=== PATIENT | male | born 1945 | race Caucasian/White ===

== ENCOUNTER 2019-09-05 15:38 | Outpatient (CLI) | payer MEDICARE, SELFPAY ==
--- NOTE | ~2019-09-05 | XR_ITS ---
XR chest 2V 09/05/2019 15:57 Indication: Dyspnea and cough Procedure: 2 view chest Comparison: Comparison to multiple prior studies sequentially, with oldest reviewed study dated 10/2013. Findings: Status post median sternotomy for CABG. Heart size normal. No focal air space disease, pulm onary edema, pleural effusion or suspected pneumothorax. Calcified granuloma right mid thorax. Impression: 1: No acute cardiopulmonary disease. Reviewed, dictated and finalized at location A. Impression: 1: No acute cardiopulmonary disease.
--- NOTE | 2019-09-05 14:15 | ECG_ITS ---
Measurements Intervals [place] Rate: 50 P: 63 DE: 198 QRS: 73 QRSD: 105 T: 64 QT: 416 QTc: 381 Interpretive Statements SINUS BRADYCARDIA PEAKED T WAVES- CONSIDER HYPERKALEMIA OR ISCHEMIA ABNORMAL ECG Electronically Signed On 09-05-2019 17:15:00 CDT by Gopal Carrero D.O.
[2019-09-05 15:55] LABS: Basophils Absolute Auto 0.02 K/mm3 (0.00-0.10); Basophils Percent Auto 0.3 % (0.0-1.0); Eosinophils Absolute Auto 0.09 K/mm3 (0.02-0.50); Eosinophils Percent Auto 1.3 % (1.0-6.0); Hematocrit 38.9 % (37.0-46.0); Hemoglobin 13.6 g/dL (12.4-15.3); Immature Granulocyte Absolute 0.02 K/mm3 (0.00-0.00); Immature Granulocyte Percent A 0.3 % (0.0-0.0); Lymphocytes Percent Auto 15.9 % (18.0-42.0); Mean Corpuscular Hemoglobin 31.6 pg (27.0-31.0); Mean Corpuscular Volume 90.3 fL (78.0-102.0); Mean Platelet Volume 9.2 fl (8.7-11.0); Monocytes Absolute Auto 0.53 K/mm3 (0.10-0.90); Monocytes Percent Auto 7.7 % (2.0-11.0); Neutrophils Absolute Auto 5.2 K/mm3 (1.7-7.2); Neutrophils Percent Auto 74.5 % (50.0-70.0); Platelet Count Result 228 K/mm3 (150-420); Red Blood Count 4.31 M/mm3 (4.70-6.10); Red Cell Distribution Width 13.2 % (11.6-14.4); White Blood Count 6.9 K/mm3 (4.8-10.8)
[2019-09-05 15:59] LABS: Add Urine Microscopic? YES; Appearance Urine Clear (Clear); Bilirubin Urine Negative (Negative); Blood Urine Negative (Negative); Color Urine Yellow (Yellow); Glucose Urine UA Negative (Negative); Ketones Urine Negative (Negative); Leukocyte Esterase Ur 1+ (Negative); Nitrate Urine Negative (Negative); Protein Urine Negative (Negative); Urobilinogen Urine 0.2 mg/dL (0.2-1.0); pH Urine 5.5 (5.0-8.0)
[2019-09-05 16:10] LABS: Bacteria Urine Trace /hpf; RBC Urine None seen /hpf (0-2); Squamous Epithelial Cell Urine Rare /hpf (Few); WBC Urine 0-3 /hpf (0-3)
[2019-09-05 16:12] LABS: BNP 94.5 pg/mL (0-100)
[2019-09-05 16:27] LABS: Alanine Aminotransferase 32 U/L (16-63); Albumin Level 3.7 g/dL (3.4-5.0); Alkaline Phosphatase 118 U/L (46-116); Anion Gap 12.5 mmol/L (7-16); Aspartate Amino Transferase 29 U/L (15-37); Bilirubin,Total 1.1 mg/dL (0.00-1.00); Blood Urea Nitrogen 23 mg/dL (7-18); Carbon Dioxide 26 mmol/L (21-32); Chloride 104 mmol/L (98-108); Cholesterol 121 mg/dL (0-200); Creatine Kinase 156 U/L (39-308); Estimated Glomerular Filt Rate 55; Glucose 95 mg/dL (70-99); HDL Direct 40 mg/dL (40-60); LDL Cholesterol Calculated 66 mg/dL (<130); Osmolality Calculated 289 mOsm/kg (285-295); Potassium 4.5 mmol/L (3.5-5.1); Sodium 138 mmol/L (136-145); Total Protein 7.5 g/dL (6.4-8.2); Triglycerides 77 mg/dL (0-150); Troponin I 0.02 ng/mL (0.00-0.056)
== END 2019-09-05 15:39 | disposition home or self-care (01) ==
LOC: CHSLAB 15:43
PROVIDERS: PCP Internal Medicine; Visit Provider Internal Medicine
DX: R06.00 Dyspnea, unspecified (principal); R53.83 Other fatigue; E78.5 Hyperlipidemia, unspecified
CPT/HCPCS: 36415; 71046; 80053; 80061; 81001; 82550; 82553; 83880; 84484; 85025; 93005

== ENCOUNTER 2019-09-19 12:55 | Outpatient (CLI) | payer MEDICARE, SELFPAY ==
--- NOTE | ~2019-09-19 | US_ITS ---
EXAMINATION: US carotid duplex BI DATE: 09/19/2019 13:41 INDICATION: Carotid atherosclerosis. Transient memory loss. Dysphagia. TECHNIQUE: Grayscale, color Doppler, and pulsed Doppler images of the cervical carotid arteries were obtained. The degree of vessel stenosis is placed in one of the following categories: normal, <50%, 5 0-69%, >=70% but less than near-occlusion, near-occlusion, or total occlusion. Note that percent sten osis relative to normal distal artery lumen diameter is indirectly measured from velocity measurement s as described by Son, et al. Radiology 2003; 229:340-346. COMPARISON: 12/27/2017 FINDINGS: RIGHT: The right common carotid artery (CCA) peak systolic velocity (PSV) is 98 cm/s. The right internal car otid artery (ICA) PSV is 75 cm/s. The right ICA end-diastolic velocity (EDV) is 19 cm/s. The right IC A/CCA PSV ratio is 0.8. Grayscale and color Doppler images yield an estimate of <50% diameter reducti on from plaque in the ICA. The external carotid artery (ECA) PSV is 91 cm/s. There is antegrade flow in the right vertebral artery. LEFT: The left CCA PSV is 86 cm/s. The left ICA PSV is 57 cm/s. The left ICA EDV is 18 cm/s. The left ICA/C CA PSV ratio is 0.7. Grayscale and color Doppler images yield an estimate of <50% diameter reduction from plaque in the ICA. The ECA PSV is 92 cm/s. There is antegrade flow in the left vertebral artery. IMPRESSION: 1. <50% stenosis in the right internal carotid artery. 2. <50% stenosis in the left internal carotid artery. 3. Bradycardia. Reviewed, dictated and finalized at location A.
== END 2019-09-19 12:56 | disposition home or self-care (01) ==
LOC: ANHIMG 13:01
PROVIDERS: PCP Internal Medicine; Visit Provider Nurse Practitioner Adult Health
DX: R47.02 Dysphasia (principal); R41.3 Other amnesia; I65.23 Occlusion and stenosis of bilateral carotid arteries; R00.1 Bradycardia, unspecified
CPT/HCPCS: 93880

== ENCOUNTER 2019-09-30 13:23 | Outpatient (CLI) | payer MEDICARE, SELFPAY ==
--- NOTE | ~2019-09-30 | MR_ITS ---
EXAMINATION: MRA brain wo con EXAM DATE: 09/30/2019 14:53 INDICATION: Trouble finding words, stroke follow-up. TECHNIQUE: 3-D [id number] MRA of the intracranial arteries was performed without contrast. There is no prior study for comparison. FINDINGS: There is normal flow related signal seen within the vertebral, basilar and internal carotid arteries. There is no proximal stenosis. There are no aneurysms identified. Flow in the cerebral arteries is symmetric. Right anterior cerebral artery supply to the anterior communicating artery. Left verte bral artery ends in the posterior inferior cerebellar artery, a normal congenital variant. There is r ight-sided posterior communicating artery dominant posterior cerebral artery. IMPRESSION: Normal MRA brain exam. Reviewed, dictated and finalized at location B. IMPRESSION: Normal MRA brain exam.
--- NOTE | ~2019-09-30 | MR_ITS ---
EXAMINATION: MR brain/brain stem wo con EXAM DATE: 09/30/2019 14:53 INDICATION: Stroke, follow-up. Word finding, speech impairment. TECHNIQUE: Magnetic resonance imaging (MRI) of the brain/brain stem obtained without contrast. Sagitt al T1, axial diffusion, gradient echo (T2*), T1, T2, FLAIR sequences obtained. There is no prior st udy for comparison. FINDINGS: There are no areas of restricted diffusion to suggest acute infarction. There is no acute hemorrhage seen on the T2*, a hemosiderin sensitive sequence. No intraparenchymal brain mass lesion. There is mild periventricular and subcortical T2/FLAIR signal hyperintensity, nonspecific but probab ly related to small vessel ischemic disease (microangiopathy). There is mild prominence of the sulc i and ventricles related to cerebral atrophy. There are no extra-axial collections. Flow voids are seen in the cerebral arteries on the T2-weighted sequences consistent with their expected patency. The orbits are unremarkable. Soft tissue is unremarkable. IMPRESSION: 1. No acute intracranial findings. 2. Chronic age related findings. Reviewed, dictated and finalized at location B.
== END 2019-09-30 13:24 | disposition home or self-care (01) ==
PROVIDERS: PCP Internal Medicine; Visit Provider Internal Medicine Cardiovascular Disease
DX: R29.818 Other symptoms and signs involving the nervous system (principal); R47.89 Other speech disturbances
CPT/HCPCS: 70544; 70551

== ENCOUNTER 2020-06-25 13:40 | Outpatient (CLI) | payer MEDICARE, SELFPAY ==
[2020-06-25 11:08] LABS: Basophils Percent Auto 0.7 % (0.2-1.2); Eosinophils Absolute Auto 0.2 K/mm3 (0-0.3); Eosinophils Percent Auto 3.5 % (0-4.4); Hematocrit 41.7 % (42.0-52.0); Hemoglobin 14.3 g/dL (14.0-18.0); Immature Granulocyte Absolute 0.03 K/mm3 (0.00-0.031); Immature Granulocyte Percent A 0.7 % (0-0.5); Lymphocytes Absolute Auto 1.34 K/mm3 (0.9-3.2); Lymphocytes Percent Auto 29.6 % (18.3-44.2); Mean Corpuscular HGB Conc 34.3 g/dl (32-36); Mean Corpuscular Hemoglobin 31.4 pg (26-34); Mean Corpuscular Volume 91.6 fl (80-100); Mean Platelet Volume 9.3 fl (7.4-10.4); Monocytes Absolute Auto 0.6 K/mm3 (0.1-0.6); Monocytes Percent Auto 13.9 % (2.6-8.5); Neutrophils Absolute Auto 2.3 K/mm3 (1.3-6.7); Neutrophils Percent Auto 51.6 % (45.5-73.1); Platelet Count Result 236 k/mm3 (150-375); Red Blood Count 4.55 M/mm3 (4.6-6.20); Red Cell Distribution Width 13.6 % (11.5-14.5); White Blood Count 4.5 K/mm3 (4.5-10.0)
[2020-06-25 11:17] LABS: INR 0.9; Prothrombin Time 12.8 Seconds (11.1-14.7)
[2020-06-25 11:18] LABS: Partial Thromboplastin Time 29.5 SECONDS (22.3-36.8)
[2020-06-25 11:28] LABS: Anion Gap 4 mmol/L (8-16); Blood Urea Nitrogen 17 mg/dL (9-20); Calcium 9.1 mg/dL (8.4-10.2); Carbon Dioxide 29 mmol/L (22-30); Chloride 106 mmol/L (98-107); Estimated Glomerular Filt Rate > 60; Glucose 54 mg/dL (75-110); Potassium 4.3 mmol/L (3.4-5.0); Sodium 139 mmol/L (137-145)
--- NOTE | 2020-06-25 14:04 | ECG_ITS ---
Measurements Intervals [place] Rate: 54 P: 60 TN: 196 QRS: 64 QRSD: 103 T: 65 QT: 407 QTc: 389 Interpretive Statements SINUS BRADYCARDIA BORDERLINE ECG Electronically Signed On 06-25-2020 14:13:32 CDT by Gopal Carrero D.O.
== END 2020-06-25 13:41 | disposition home or self-care (01) ==
LOC: ANHSURGERY 07-20 13:40
PROVIDERS: PCP Internal Medicine; Visit Provider Urology
DX: N40.0 Benign prostatic hyperplasia without lower urinary tract symptoms (principal); I10 Essential (primary) hypertension; Z01.818 Encounter for other preprocedural examination; R94.31 Abnormal electrocardiogram [ECG] [EKG]
CPT/HCPCS: 36415; 80048; 85025; 85610; 85730; 87086; 93005

== ENCOUNTER → 2020-07-03 02:31 | Outpatient (CLI) | payer MEDICARE, SELFPAY ==
[2020-07-03 20:23] LABS: SARS-CoV-2 RNA PCR Negative
== END ==
PROVIDERS: PCP Internal Medicine; Visit Provider Urology
DX: Z01.812 Encounter for preprocedural laboratory examination (principal); Z20.822 Contact with and (suspected) exposure to COVID-19
CPT/HCPCS: C9803; U0003; U0005

== ENCOUNTER 2020-07-07 16:20 | Observation (INO) | payer MEDICARE, SELFPAY ==
[2020-06-22 15:13] VITALS: BMI 27.1
[2020-07-06] VITALS (12 sets, daily range): BP systolic 117–152; BP diastolic 59–78; PULSE 51–88; RESP 12–20; TEMP 36.4–37.4; O2SAT 94–100
--- NOTE | 2020-07-06 08:12 | WPDHPUPDATE1 ---
History and Physical Update Update Date/Time: 07/06/20 08:12 History and Physical has been reviewed, including an updated exam of the patient. There are NO changes in the patient's condition. Risks, benefits, and alternatives have been discussed and questions answered. Patient agrees to proceed with procedure. Proceed with transurethral resection of prostate.
--- NOTE | 2020-07-06 09:20 | WPDANESEPPF ---
Anes - Initial Pre Proc Eval Procedure: Operation Date: 07/06/20 10:30 Proposed Procedures p Trans Urethral Resection Prostate - Gabriel Villanueva MD Date/Time: 07/06/20 09:20 Surgeon: Gabriel Villanueva MD Pre Op Diagnosis: BPH Patient Data Age: 74 Gender: M Height: 6 ft Weight: 91 kg Allergies Allergy/AdvReac Type Severity Reaction Status Date / Time No Known Allergies Allergy Verified 06/25/20 10:20 Home Medications Medication Instructions Recorded Confirmed Type amlodipine-benazepril 1 cap PO HS 06/22/20 06/22/20 History aspirin [Aspir-81] 81 mg PO DAILY 06/22/20 06/22/20 History atorvastatin 20 mg PO HS 06/22/20 06/22/20 History donepezil 10 mg PO HS 06/22/20 06/22/20 History finasteride 5 mg PO HS 06/22/20 06/22/20 History loratadine [Claritin] 10 mg DAILY 06/22/20 06/22/20 History memantine 10 mg PO QPM 06/22/20 06/22/20 History pantoprazole 40 mg PO QAM 06/22/20 06/22/20 History tamsulosin 0.4 mg PO BID 06/22/20 06/22/20 History Patient hx anesthesia problems: none Family hx anesthesia problems: none PMFSH Past Medical History Medical History (Updated 07/06/20 @ 08:54 by Bal Garcia MD) Dementia early stages GERD (gastroesophageal reflux disease) Hyperlipidemia Hypertension Surgical History Surgical History (Updated 07/06/20 @ 08:54 by Bal Garcia MD) S/P CABG x 3 Social History Social History (System 06/25/20 @ 10:20 by Summer Sim) Smoking status: Former smoker Second hand tobacco smoke exposure: No Additional smoking assessment comments: PT UNABLE TO RECALL SMOKING HX, STATES QUIT OVER 30+ YRS AGO Alcohol intake: never Substance use: never Substance use type: does not use Living arrangements: with family Spiritual care concerns: No Anes - Eval Final PreProcedure Day of Procedure 07/06/20 09:20 Patient weight: overweight Heart: regular rate and rhythm Lungs: clear to auscultation Airway: Mallampati scale class II Neurological: alert and oriented Last oral intake: >/= 8 hours ASA classification: III Emergent: no Anesthetic plan: proceed Anesthesia type and monitoring: general LMA and standard monitoring Informed Consent: The patient's anesthetic plan and its attendant risks and benefits were discussed with the patient/family/POA. Questions were solicited and answers provided to the satisfaction of the patient/family/POA.
[2020-07-06 09:38] LABS: Glucose Point of Care 97 (65-105)
[2020-07-06] MEDS: LACTATED RINGERS 1,000 ML 30 ML IV CONT ×2 (10:00→11:11)
--- NOTE | 2020-07-06 10:00 | PM.IMHP ---
H&P: HPI History of Present Illness Date/Time: 07/06/20 10:00 Chief Complaint: bph, retention PMFSH Past Medical History Medical History (Updated 07/06/20 @ 08:54 by Bal Garcia MD) Dementia early stages GERD (gastroesophageal reflux disease) Hyperlipidemia Hypertension Surgical History Surgical History (Updated 07/06/20 @ 08:54 by Bal Garcia MD) S/P CABG x 3 Social History Social History (System 06/25/20 @ 10:20 by Summer Sim) Smoking status: Former smoker Second hand tobacco smoke exposure: No Additional smoking assessment comments: PT UNABLE TO RECALL SMOKING HX, STATES QUIT OVER 30+ YRS AGO Alcohol intake: never Substance use: never Substance use type: does not use Living arrangements: with family Spiritual care concerns: No Meds Home Medications and Allergies Home Medications Medication Instructions Recorded Confirmed Type amlodipine-benazepril 1 cap PO HS 06/22/20 06/22/20 History aspirin [Aspir-81] 81 mg PO DAILY 06/22/20 06/22/20 History atorvastatin 20 mg PO HS 06/22/20 06/22/20 History donepezil 10 mg PO HS 06/22/20 06/22/20 History finasteride 5 mg PO HS 06/22/20 06/22/20 History loratadine [Claritin] 10 mg DAILY 06/22/20 06/22/20 History memantine 10 mg PO QPM 06/22/20 06/22/20 History pantoprazole 40 mg PO QAM 06/22/20 06/22/20 History tamsulosin 0.4 mg PO BID 06/22/20 06/22/20 History Allergies Allergy/AdvReac Type Severity Reaction Status Date / Time No Known Allergies Allergy Verified 06/25/20 10:20
[2020-07-06] MEDS: ceFAZolin 2 GM/D5W 50 ML 2 GM/50 ML BAG IVPB (10:08)
[2020-07-06] MEDS: LIDOCAINE HCL 2% GEL UROJET 10 ML PKG MUCOUS MEM (10:26)
--- NOTE | 2020-07-06 11:07 | P.OP_ITS ---
Procedure Note - Detailed Date of procedure: 07/06/20 Pre-op diagnosis: BPH Post-op diagnosis: same Procedure performed: Dilation of urethra with male sounds, transurethral resection of prostate Description of procedure: Patient is taken the operative suite and correctly identified. Once anesthesia was obtained was placed in dorsal lithotomy position and prepped and draped usual sterile fashion. Urethra was dilated up to 26 [place]. Twenty-four [place]uran resectoscope sheath was inserted in the bladder. There is no tumors noted patient has bilateral Hutch diverticuli with the ureteral orifices right at the opening. Patient also has a moderate-sized median lobe. We started out by resecting the tissue at the 5 and 7 o'clock position. This was carried down from the bladder neck to the verumontanum. Lateral lobes were then taken down in similar fashion. The median lobe was taken down last. Prostate chips were then sent for analysis. Hemostasis was achieved using electrocautery. 2% viscous lidocaine was inserted urethra. Twe nty-four Honduran [address] was placed with 30 cc in the balloon. This was connected to continuous bladder irrigation. Patient is taken recovery room stable condition. Anesthesia: GLMA Surgeon: Gabriel Villanueva MD Drains: Yes Packing: No Pathology: yes Complications: No immediate complications Condition: stable Disposition: PACU
[2020-07-06 11:37] LABS: Glucose Point of Care 86 (65-105)
[2020-07-06] MEDS: fentaNYL CITRATE INJ (*CRX) 100 MCG/2 ML VIAL 25 MCG IV PUSH ×2 (11:52→11:58)
--- NOTE | 2020-07-06 12:33 | ADMGEN ---
This patient, Axel Reyes, was admitted to [facility]. Patient/family oriented to hospital policies and general routines including ID bracelet, bed and alarms, visiting hours, pain management, procedures, bathroom and other care routines, personal items, smoking policy, room service/diet, and visiting hours. Information on how to activate the Rapid Response Team has been discussed. Patient/Family are encouraged to report perceived risks to care and to ask questions if they do not understand what they are told or what they should do.
[2020-07-06] MEDS: DOCUSATE SODIUM 100 MG CAPSULE PO (17:15)
[2020-07-06] MEDS: MEMANTINE 10 MG TABLET PO (17:15)
[2020-07-06] MEDS: ATORVASTATIN 20 MG TABLET PO (21:23)
[2020-07-06] MEDS: DONEPEZIL HCL 10 MG TABLET PO (21:23)
[2020-07-06] MEDS: amLODIPine BESYLATE 5 MG TABLET PO (21:23)
[2020-07-06] MEDS: lisinopriL 20 MG TABLET 40 MG PO (21:23)
[2020-07-07] VITALS: BP 135/66; PULSE 60; RESP 20; TEMP 37.1; O2SAT 95
[2020-07-07 04:00] VITALS: BP 138/62; PULSE 59; RESP 20; TEMP 37.5; O2SAT 94
[2020-07-07 06:42] LABS: Hematocrit 38.7 % (42.0-52.0); Hemoglobin 13.2 g/dL (14.0-18.0)
[2020-07-07 06:54] LABS: Anion Gap 5 mmol/L (8-16); Blood Urea Nitrogen 16 mg/dL (9-20); Calcium 8.5 mg/dL (8.4-10.2); Carbon Dioxide 25 mmol/L (22-30); Chloride 107 mmol/L (98-107); Estimated CRCL calculation 69 ml/min; Estimated Glomerular Filt Rate > 60; Glucose 117 mg/dL (75-110); Potassium 4.4 mmol/L (3.4-5.0); Sodium 137 mmol/L (137-145)
[2020-07-07 08:00] VITALS: BP 141/62; PULSE 61; RESP 20; TEMP 36.9; O2SAT 95
[2020-07-07] MEDS: LORATADINE 10 MG TABLET PO (09:48)
[2020-07-07] MEDS: CEPHALEXIN 500 MG CAPSULE PO ×4 (09:48→20:38)
[2020-07-07] MEDS: PANTOPRAZOLE 40 MG TABLET PO (09:48)
[2020-07-07] MEDS: DOCUSATE SODIUM 100 MG CAPSULE PO ×2 (09:48→18:05)
[2020-07-07 12:00] VITALS: BP 137/67; PULSE 59; RESP 18; TEMP 37.2; O2SAT 97
--- NOTE | 2020-07-07 14:40 | WPDUROPN2 ---
Progress Note: A&P Assessment and Plan (1) BPH (benign prostatic hyperplasia): Code(s): N40.0 - Benign prostatic hyperplasia without lower urinary tract symptoms Status: Acute Assessment and Plan: The patient's CBI was restarted, will keep overnight and encourage more activity. Wean CBI to off when clear, will re-evaluate in the morning. Subjective Subjective Date/Time Seen: 07/07/20 14:40 POD #1 TURP with urethral dilation. Patient doing well, urine is bloody off CBI >5 hours, minimal activity. Patient is tolerating his diet well, doesn't c/o abdominal pain. Review of Systems Cardiovascular: Cardiovascular: Denies chest pain Respiratory: Respiratory: Reports no additional respiratory complaints Gastrointestinal: Gastrointestinal: Denies abdominal pain, Denies nausea and Denies vomiting Genitourinary: Genitourinary: Reports hematuria and Denies flank pain Exam Resp: Effort & Inspection: normal respiratory effort Cardio: Rate: bradycardic GI: GI Palp: Yes Soft to palpation and No Tenderness to palpation present (GI) : General: Yes no CVA tenderness Urinary Catheter: Urinary Catheter: patent and draining and urine red Extrem: General: no edema Objective Data Vital Signs Vital Signs: Vital Signs - 24 hr 07/06/20 18:10 07/06/20 20:00 07/07/20 00:00 Temperature 98.8 F 99.3 F 98.8 F Pulse Rate 71 88 60 Respiratory Rate 18 20 20 Blood Pressure 151/59 H 152/62 H 135/66 Pulse Oximetry 95 95 95 07/07/20 04:00 07/07/20 08:00 07/07/20 12:00 Temperature 99.5 F 98.4 F 98.9 F Pulse Rate 59 L 61 59 L Respiratory Rate 20 20 18 Blood Pressure 138/62 141/62 H 137/67 Pulse Oximetry 94 95 97 Intake/Output Intake/Output: Intake & Output 07/04/20 07/05/20 07/06/20 07/07/20 23:59 23:59 23:59 23:59 Intake Total 990 1240 Output Total 5350 600 Balance -4360 640 Meds/Results Medications: Active Medications Generic Name Dose Route Start Last Admin Trade Name Freq PRN Reason Stop Dose Admin Hydrocodone Bitart/Acetaminophen 1 tab 07/06/20 12:25 Hydrocodone/Acetaminophen (*Crx) 5-325 Mg Tablet PO Q4H PRN Pain Rated 1-6 Amlodipine Besylate 5 mg 07/06/20 21:00 07/06/20 21:23 Amlodipine Besylate 5 Mg Tablet PO 5 mg HS BUZZ Administration Atorvastatin Calcium 20 mg 07/06/20 21:00 07/06/20 21:23 Atorvastatin 20 Mg Tablet PO 20 mg HS BUZZ Administration Cephalexin HCl 500 mg 07/07/20 09:00 07/07/20 12:57 Cephalexin 500 Mg Capsule PO 500 mg QID BUZZ Administration Docusate Sodium 100 mg 07/06/20 17:00 07/07/20 09:48 Docusate Sodium 100 Mg Capsule PO 100 mg BID BUZZ Administration Donepezil HCl 10 mg 07/06/20 21:00 07/06/20 21:23 Donepezil Hcl 10 Mg Tablet PO 10 mg HS BUZZ Administration Fentanyl Citrate 25 mcg 07/06/20 11:27 07/06/20 11:58 Fentanyl Citrate Inj (*Crx) 100 Mcg/2 Ml Vial IV PUSH 25 mcg Q2M PRN Administration Pain Hyoscyamine 0.125 mg 07/06/20 12:25 Hyoscyamine Sulfate 0.125 Mg Tablet SUBLINGUAL Q6H PRN Bladder Spasm Lisinopril 40 mg 07/06/20 21:00 07/06/20 21:23 Lisinopril 20 Mg Tablet PO 40 mg HS BUZZ Administration Loratadine 10 mg 07/07/20 09:00 07/07/20 09:48 Loratadine 10 Mg Tablet PO 10 mg DAILY BUZZ Administration Memantine 10 mg 07/06/20 18:00 07/06/20 17:15 Memantine 10 Mg Tablet PO 10 mg QPM BUZZ Administration Morphine Sulfate 2 mg 07/06/20 12:25 Morphine Sulfate (*Crx) 2 Mg/Ml Inj IV PUSH Q2H PRN Pain Rated 7-10 Naloxone HCl 0.1 mg 07/06/20 12:25 Naloxone Hcl 0.4 Mg/Ml Vial IV PUSH Q2M PRN Opiate Reversal Ondansetron HCl 4 mg 07/06/20 11:27 Ondansetron Inj 4 Mg/2 Ml Vial IV PUSH ONCE PRN Nausea Ondansetron HCl 4 mg 07/06/20 12:25 Ondansetron Inj 4 Mg/2 Ml Vial IV PUSH Q12H PRN Nausea And Vomiting Pantoprazole Sodium 40 mg 07/07/20 09:00 07/07/20 0
[2020-07-07 16:00] VITALS: BP 133/59; PULSE 63; RESP 20; TEMP 37.1; O2SAT 97
[2020-07-07] MEDS: MEMANTINE 10 MG TABLET PO (18:05)
[2020-07-07] MEDS: ATORVASTATIN 20 MG TABLET PO (20:38)
[2020-07-07] MEDS: lisinopriL 20 MG TABLET 40 MG PO (20:38)
[2020-07-07] MEDS: DONEPEZIL HCL 10 MG TABLET PO (20:38)
[2020-07-07] MEDS: amLODIPine BESYLATE 5 MG TABLET PO (20:38)
[2020-07-07 22:00] VITALS: BP 135/66; PULSE 56; RESP 20; TEMP 36.8; O2SAT 96
[2020-07-08 06:00] VITALS: BP 148/70; PULSE 58; RESP 20; TEMP 37; O2SAT 96
[2020-07-08] MEDS: PANTOPRAZOLE 40 MG TABLET PO (07:57)
[2020-07-08] MEDS: DOCUSATE SODIUM 100 MG CAPSULE PO (07:57)
[2020-07-08] MEDS: CEPHALEXIN 500 MG CAPSULE PO ×2 (07:57→12:43)
[2020-07-08] MEDS: LORATADINE 10 MG TABLET PO (07:58)
--- NOTE | 2020-07-08 09:02 | PM.DS ---
DS: Admitting Diagnosis Admitting Diagnosis Admitting Diagnosis: BPH DS: Discharge Diagnosis Discharge Diagnosis (1) BPH (benign prostatic hyperplasia): Code(s): N40.0 - Benign prostatic hyperplasia without lower urinary tract symptoms Status: Acute DS: Summary Hospital Course Hospital Course: See below Time Spent with Patient Time attestation: The patient underwent a TURP with urethral dilation on 07/06/[address] Rosa Villanueva. He tolerated the procedure well, went to recovery in stable condition and then went to the floor for further observation. He was tolerating his diet well, no nausea or abdominal pain. He did have gross hematuria when CBI was weaned to off, therefore it was restarted yesterday afternoon, I encouraged activity and it then became pink again early this morning on CBI and was weaned to off and the urine remains clear, but still slightly pink. He will be discharged home with a bazzi to be removed on Sunday in the office. He should resume all home meds except ASA, which should be held until Sunday, and he can take Levsin PRN for bladder spasms. Diet as tolerated and activity as tolerated. Exam Resp: Effort & Inspection: normal respiratory effort Cardio: Rate: bradycardic GI: GI Palp: Yes Soft to palpation and No Tenderness to palpation present (GI) : General: Yes no CVA tenderness Urinary Catheter: Urinary Catheter: patent and draining and urine pink Extrem: General: no edema DS: Data Data Completed and Pending Completed studies during hospitalization: Pending at discharge 07/06/20 10:45 Surgical [PTH] Routine Discharge Plan Discharge Attending physician on discharge: Gabriel Villanueva Discharging Clinician: Yaz Kelly Anticipated Discharge Date/Time: 07/08/20 13:07 Patient Disposition: Home, Self-Care Activity: no straining Diet: as tolerated Discharge Instructions: Follow up on Sunday, July 12 at 9:30am to have bazzi removed. Call the office [phone] to report of fever of >102, bloody urine, blood clots or a catheter that is not draining. Perform daily catheter cleaning around penis. Patient Instructions: Continuous Bladder Irrigation (GEN), Transurethral Prostatectomy (DC) Follow-up/Referrals: Gabriel Villanueva MD [Physician] - Discharge Medications: New hyoscyamine sulfate [Anaspaz] 0.125 mg Tablet,Disintegrating 0.125 mg sublingual Q6H PRN (Reason: Bladder Spasm) Qty: 12 RF: 0 Continued tamsulosin 0.4 mg Capsule 0.4 mg PO BID RF: 0 finasteride 5 mg Tablet 5 mg PO HS RF: 0 amlodipine-benazepril 5-40 mg Capsule 1 cap PO HS RF: 0 Held aspirin 81 mg Tablet,Delayed Release (Dr/Ec) 81 mg PO DAILY RF: 0 Hold Instructions: Resume on 07/10/20. No Action atorvastatin 20 mg Tablet 20 mg PO HS RF: 0 donepezil 5 mg Tablet 10 mg PO HS RF: 0 loratadine [Claritin] 10 mg Tablet 10 mg DAILY RF: 0 memantine 10 mg Tablet 10 mg PO QPM RF: 0 pantoprazole 40 mg Tablet,Delayed Release (Dr/Ec) 40 mg PO QAM RF: 0 Date of admission: 07/07/20 16:20 Primary Care Provider: Cesar Lafleur Admitting Provider: Gabriel Villanueva Attending physician on admission: Gabriel Villanueva Condition: Improved
--- NOTE | 2020-07-08 09:04 | WPDUROPN2 ---
Progress Note: A&P Assessment and Plan (1) BPH (benign prostatic hyperplasia): Code(s): N40.0 - Benign prostatic hyperplasia without lower urinary tract symptoms Status: Acute Assessment and Plan: Okay to discharge home with bazzi attached to leg bag. Subjective Subjective Date/Time Seen: 07/08/20 09:04 POD #2 TURP with urethral dilation. Patient doing well, urine is pink on slow CBI. Patient is tolerating his diet well, doesn't c/o abdominal pain. He is up in the chair. Review of Systems Cardiovascular: Cardiovascular: Reports no additional cardiovascular complaints and Denies chest pain Respiratory: Respiratory: Reports no additional respiratory complaints Gastrointestinal: Gastrointestinal: Denies abdominal pain, Denies nausea and Denies vomiting Genitourinary: Genitourinary: Reports hematuria and Denies flank pain Exam Resp: Effort & Inspection: normal respiratory effort Cardio: Rate: bradycardic GI: GI Palp: Yes Soft to palpation and No Tenderness to palpation present (GI) : General: Yes no CVA tenderness Urinary Catheter: Urinary Catheter: patent and draining and urine pink Extrem: General: no edema Objective Data Vital Signs Vital Signs: Vital Signs - 24 hr 07/07/20 12:00 07/07/20 16:00 07/07/20 22:00 Temperature 98.9 F 98.7 F 98.2 F Pulse Rate 59 L 63 56 L Respiratory Rate 18 20 20 Blood Pressure 137/67 133/59 L 135/66 Pulse Oximetry 97 97 96 07/08/20 06:00 Temperature 98.6 F Pulse Rate 58 L Respiratory Rate 20 Blood Pressure 148/70 H Pulse Oximetry 96 Intake/Output Intake/Output: Intake & Output 07/05/20 07/06/20 07/07/20 07/08/20 23:59 23:59 23:59 23:59 Intake Total 990 2800 360 Output Total 5350 1600 Balance -4360 1200 360 Meds/Results Medications: Active Medications Generic Name Dose Route Start Last Admin Trade Name Freq PRN Reason Stop Dose Admin Hydrocodone Bitart/Acetaminophen 1 tab 07/06/20 12:25 Hydrocodone/Acetaminophen (*Crx) 5-325 Mg Tablet PO Q4H PRN Pain Rated 1-6 Amlodipine Besylate 5 mg 07/06/20 21:00 07/07/20 20:38 Amlodipine Besylate 5 Mg Tablet PO 5 mg HS BUZZ Administration Atorvastatin Calcium 20 mg 07/06/20 21:00 07/07/20 20:38 Atorvastatin 20 Mg Tablet PO 20 mg HS BUZZ Administration Cephalexin HCl 500 mg 07/07/20 09:00 07/08/20 07:57 Cephalexin 500 Mg Capsule PO 500 mg QID BUZZ Administration Docusate Sodium 100 mg 07/06/20 17:00 07/08/20 07:57 Docusate Sodium 100 Mg Capsule PO 100 mg BID BUZZ Administration Donepezil HCl 10 mg 07/06/20 21:00 07/07/20 20:38 Donepezil Hcl 10 Mg Tablet PO 10 mg HS BZUZ Administration Fentanyl Citrate 25 mcg 07/06/20 11:27 07/06/20 11:58 Fentanyl Citrate Inj (*Crx) 100 Mcg/2 Ml Vial IV PUSH 25 mcg Q2M PRN Administration Pain Hyoscyamine 0.125 mg 07/06/20 12:25 Hyoscyamine Sulfate 0.125 Mg Tablet SUBLINGUAL Q6H PRN Bladder Spasm Lisinopril 40 mg 07/06/20 21:00 07/07/20 20:38 Lisinopril 20 Mg Tablet PO 40 mg HS BUZZ Administration Loratadine 10 mg 07/07/20 09:00 07/08/20 07:58 Loratadine 10 Mg Tablet PO 10 mg DAILY BUZZ Administration Memantine 10 mg 07/06/20 18:00 07/07/20 18:05 Memantine 10 Mg Tablet PO 10 mg QPM BUZZ Administration Morphine Sulfate 2 mg 07/06/20 12:25 Morphine Sulfate (*Crx) 2 Mg/Ml Inj IV PUSH Q2H PRN Pain Rated 7-10 Naloxone HCl 0.1 mg 07/06/20 12:25 Naloxone Hcl 0.4 Mg/Ml Vial IV PUSH Q2M PRN Opiate Reversal Ondansetron HCl 4 mg 07/06/20 11:27 Ondansetron Inj 4 Mg/2 Ml Vial IV PUSH ONCE PRN Nausea Ondansetron HCl 4 mg 07/06/20 12:25 Ondansetron Inj 4 Mg/2 Ml Vial IV PUSH Q12H PRN Nausea And Vomiting Pantoprazole Sodium 40 mg 07/07/20 09:00 07/08/20 07:57 Pantoprazole 40 Mg Tablet PO 40 mg QAM BUZZ Administration
== END 2020-07-08 14:40 | disposition home or self-care (01) ==
LOC: ANHSURGERY 16:21 → ANH3MEDSUR 16:21
PROVIDERS: Admitting Provider Urology; PCP Internal Medicine; Visit Provider Urology
PROC: 0VT08ZZ Resection of Prostate, Via Natural or Artificial Opening Endoscopic (ICD-10-PCS; CPT 52601; principal; 2020-07-06 10:30)
DX: N40.0 Benign prostatic hyperplasia without lower urinary tract symptoms (principal); I10 Essential (primary) hypertension; E78.5 Hyperlipidemia, unspecified; Z95.1 Presence of aortocoronary bypass graft; Z87.891 Personal history of nicotine dependence
CPT/HCPCS: 52601; 36415; 80048; 82948; 85014; 85018; 88305; A9270; G0378; J0690; J1100; J2405; J2704; J3010; J7120

== ENCOUNTER 2020-07-09 15:28 | Emergency (ER) | payer MEDICARE, SELFPAY ==
[2020-07-09 15:35] VITALS: BP 158/79; PULSE 80; RESP 20; TEMP 37.1; O2SAT 98
--- NOTE | 2020-07-09 18:05 | PC.NURSE ---
isaura and leg bag examined in triage as pt continues to report that he cannot pee plug found to be in bazzi outlet and leg bag found to be stuck into plug. urine unable to drain into leg bag due to plug inserted improperly into bazzi outlet. once plug removed approx 200 cc dark brownish urine drained from bladder via bazzi. new leg bag applied and instructions on use to pt and . pt does not want to stay and be seen by ed provider despite being encourage to stay for exam. denies abd pain or distention. pt will return for pain, distention or decreased urinary output or clots/bloody urine
== END 2020-07-10 00:36 | disposition left against medical advice (07) ==
LOC: ANHED 18:17
PROVIDERS: PCP Internal Medicine
DX: T83.031A Leakage of indwelling urethral catheter, initial encounter (principal)
CPT/HCPCS: 99199

== ENCOUNTER 2020-07-13 00:33 | Emergency (ER) | payer MEDICARE, SELFPAY ==
[2020-07-13] VITALS (7 sets, daily range): BP systolic 114–146; BP diastolic 57–69; PULSE 76–104; RESP 16–20; TEMP 37.9; O2SAT 96–100
--- NOTE | 2020-07-13 00:59 | ED.MALEGU ---
HPI - Male Genitourinary General Chief complaint: Urogenital-Male Stated complaint: fever post op Time Seen by Provider: 07/13/20 00:56 Source: patient Mode of arrival: ambulatory Limitations: no limitations History of Present Illness HPI Narrative: Patient is a 74-year-old male complaining of fever and unable to urinate that started today. Patient states that he had a TURP procedure done on July 06. Patient states his Rene catheter was removed yesterday. Patient denies any chest pain, abdominal pain, nausea, vomiting, diarrhea. Related Data Home Medications Medication Instructions Recorded Confirmed amlodipine-benazepril 1 cap PO HS 06/22/20 06/22/20 aspirin 81 mg PO DAILY 06/22/20 06/22/20 atorvastatin 20 mg PO HS 06/22/20 06/22/20 donepezil 10 mg PO HS 06/22/20 06/22/20 finasteride 5 mg PO HS 06/22/20 06/22/20 loratadine [Claritin] 10 mg DAILY 06/22/20 06/22/20 memantine 10 mg PO QPM 06/22/20 06/22/20 pantoprazole 40 mg PO QAM 06/22/20 06/22/20 tamsulosin 0.4 mg PO BID 06/22/20 06/22/20 Allergies Allergy/AdvReac Type Severity Reaction Status Date / Time No Known Allergies Allergy Verified 07/13/20 01:29 Review of Systems Review of Systems: All systems reviewed & are unremarkable except as noted in HPI and below Constitutional: Constitutional: Denies body ache(s), Denies chills, Denies excessive sweating, Denies fatigue, Denies fever(s), Denies headache(s), Denies lethargy, Denies malaise, Denies weakness and Denies weight loss Eyes: Eyes: Denies blurry vision, Denies change in vision and Denies loss of vision ENT: Denies dizziness, Denies ear discharge, Denies headache(s), Denies lip swelling, Denies epistaxis, Denies nasal congestion, Denies neck pain, Denies throat swelling and Denies tongue swelling Cardiovascular: Cardiovascular: Denies chest pain, Denies chest pain at rest, Denies chest pain with activity, Denies diaphoresis, Denies rapid heart rate, Denies edema, Denies irregular heart rhythm, Denies lightheadedness, Denies palpitations, Denies dyspnea and Denies dyspnea on exertion Respiratory: Respiratory: Denies chest congestion, Denies cough, Denies hemoptysis, Denies dyspnea and Denies dyspnea on exertion Gastrointestinal: Gastrointestinal: Denies abdominal pain, Denies melena, Denies hematochezia, Denies diarrhea, Denies nausea, Denies vomiting and Denies hematemesis Musculoskeletal: Musculoskeletal: Denies abnormal gait, Denies deformity, Denies joint swelling, Denies limited range of motion, Denies neck pain and Denies numbness Neurologic: Denies Abnormal speech present, Denies abnormal gait, Denies confusion, Denies dizziness, Denies headache(s), Denies focal weakness, Denies loss of vision, Denies numbness, Denies Other visual disturbances, Denies Sensory deficit (Neuro) and Denies weakness Psychiatric: Psychiatric: Denies confusion, Denies depression, Denies auditory hallucinations, Denies homicidal ideation and Denies suicidal ideation Endocrine: Endocrine: Denies cold intolerance, Denies excessive sweating, Denies fatigue, Denies heat intolerance and Denies palpitations Hematologic/Lymphatic: Hematologic/Lymphatic: Denies easy bleeding and Denies easy bruising Allergic/Immunologic: Allergic/Immunologic: Denies lip swelling, Denies throat swelling and Denies tongue swelling PMFSH Past Medical History Medical History Dementia early stages GERD (gastroesophageal reflux disease) Hyperlipidemia Hypertension Surgical History Surgical History S/P CABG x 3 Social History Social History Smoking packs per day: 0.5 Smoking cigarettes per day: 10.0 Smoking status: Former smoker Tobacco type: cigarettes Second hand tobacco smoke exposure: No Additional smoking assessment comments: PT UNABLE TO RECALL SMOKING HX, STATES QUIT
[2020-07-13] MEDS: LACTATED RINGERS 1,000 ML 999 ML IV CONT (02:19)
[2020-07-13] MEDS: ACETAMINOPHEN 325 MG TABLET 650 MG PO (02:20)
[2020-07-13 02:24] LABS: Basophils Percent Auto 0.3 % (0.2-1.2); Eosinophils Percent Auto 0.2 % (0-4.4); Hematocrit 38.7 % (42.0-52.0); Hemoglobin 13.3 g/dL (14.0-18.0); Immature Granulocyte Absolute 0.09 K/mm3 (0.00-0.031); Immature Granulocyte Percent A 0.7 % (0-0.5); Lymphocytes Absolute Auto 0.28 K/mm3 (0.9-3.2); Lymphocytes Percent Auto 2.2 % (18.3-44.2); Mean Corpuscular HGB Conc 34.4 g/dl (32-36); Mean Corpuscular Hemoglobin 31.4 pg (26-34); Mean Corpuscular Volume 91.5 fl (80-100); Mean Platelet Volume 9.5 fl (7.4-10.4); Monocytes Absolute Auto 0.4 K/mm3 (0.1-0.6); Monocytes Percent Auto 3.1 % (2.6-8.5); Neutrophils Absolute Auto 11.8 K/mm3 (1.3-6.7); Neutrophils Percent Auto 93.5 % (45.5-73.1); Platelet Count Result 212 k/mm3 (150-375); Red Blood Count 4.23 M/mm3 (4.6-6.20); Red Cell Distribution Width 12.9 % (11.5-14.5); White Blood Count 12.6 K/mm3 (4.5-10.0)
[2020-07-13 02:28] LABS: Add Urine Microscopic? YES; Appearance Urine Cloudy (Clear); Bilirubin Urine Negative (Negative); Blood Urine 3+ (Negative); Color Urine Yellow (Yellow); Glucose Urine UA Negative (Negative); Ketones Urine Negative (Negative); Leukocyte Esterase Ur 2+ LEU/UL (Negative); Mucus Urine Rare /lpf; Nitrate Urine Positive (Negative); Protein Urine 3+ mg/dL (Negative); RBC Urine >75 /hpf (0-2); Specific Grav Ur 1.016 (1.001-1.035); Squamous Epithelial Cell Urine Rare /hpf (Few); Urobilinogen Urine Negative mg/dL (<2.0); WBC Urine >75 /hpf
[2020-07-13 02:42] LABS: Alanine Aminotransferase 35 U/L (4-50); Albumin Level 3.9 g/dL (3.5-5.1); Alkaline Phosphatase 95 U/L (38-126); Anion Gap 9 mmol/L (8-16); Aspartate Amino Transferase 43 U/L (17-59); Bilirubin,Total 1.1 mg/dL (0.2-1.3); Blood Urea Nitrogen 26 mg/dL (9-20); Calcium 8.8 mg/dL (8.4-10.2); Carbon Dioxide 20 mmol/L (22-30); Chloride 106 mmol/L (98-107); Estimated CRCL calculation 63 ml/min; Estimated Glomerular Filt Rate > 60; Glucose 93 mg/dL (75-110); Potassium 4.1 mmol/L (3.4-5.0); Sodium 135 mmol/L (137-145)
== END 2020-07-13 05:05 | disposition home or self-care (01) ==
PROVIDERS: Emergency Provider Emergency Medicine; PCP Internal Medicine
DX: N30.01 Acute cystitis with hematuria (principal); F03.90 Unspecified dementia, unspecified severity, without behavioral disturbance, psychotic disturbance, mood disturbance, and anxiety; K21.9 Gastro-esophageal reflux disease without esophagitis; E78.5 Hyperlipidemia, unspecified; I10 Essential (primary) hypertension; Z87.891 Personal history of nicotine dependence
CPT/HCPCS: 36415; 80053; 81001; 83605; 85025; 87040; 87077; 87086; 87088; 87186; 96361; 96365; 99284; A9270; J0696; J7120

== ENCOUNTER 2020-08-18 22:29 | Emergency (ER) | payer MEDICARE, SELFPAY ==
--- NOTE | ~2020-08-18 | XR_ITS ---
EXAMINATION: XR chest 1V portable EXAM DATE: 08/18/2020 23:13 INDICATION: Fever for couple of days. TECHNIQUE: Portable AP frontal chest x-ray was obtained. Comparison is made to prior examination from 09/05/2019. FINDINGS: Sternotomy wires are present without findings to suggest sternal dehiscence. Right midlung zone granuloma. The lungs are otherwise clear. There are no pleural effusions. Cardiac silhouette i s prominent but magnified on this AP technique. There is no pneumothorax suspected. Moderate bilat eral acromioclavicular osteoarthritis. IMPRESSION: No acute cardiopulmonary findings. Reviewed, dictated and finalized at location G.
--- NOTE | ~2020-08-18 | XR_ITS ---
EXAMINATION: XR abdomen obstructive series EXAM DATE: 08/18/2020 23:47 INDICATION: Nausea and vomiting. TECHNIQUE: Frontal upright projection of the upper abdomen, frontal projection of the lower abdomen f or interpretation. There is no prior study for comparison. FINDINGS: Nonobstructive abdominal bowel gas pattern. No evidence of free intraperitoneal air. Lung bases are unremarkable. Sternotomy wires and posterior fusion L1-2. Right inguinal surgical clips. Ex pected amount of colonic gas. No organomegaly suspected. IMPRESSION: 1. Nonspecific, but nonobstructive bowel gas pattern. Reviewed, dictated and finalized at location G.
[2020-08-18 22:43] VITALS: BP 124/79; PULSE 95; RESP 20; TEMP 39; O2SAT 95
--- NOTE | 2020-08-18 22:45 | ECG_ITS ---
Measurements Intervals [place] Rate: 94 P: 25 NM: 136 QRS: 69 QRSD: 101 T: 49 QT: 343 QTc: 431 Interpretive Statements SINUS RHYTHM SUPRAVENTRICULAR BIGEMINY AND ATRIAL PREMATURE COMPLEX ST-T WAVE ABNORMALITY IN ANTEROLLATERAL LEADS- CONSIDER ISCHEMIA ABNORMAL ECG Electronically Signed On 08-19-2020 6:44:57 CDT by Gopal Carrero D.O.
[2020-08-18 22:52] VITALS: BP 143/71; PULSE 96; RESP 16; TEMP 39.3; O2SAT 96
[2020-08-18] MEDS: ONDANSETRON INJ 4 MG/2 ML VIAL IV PUSH (23:07)
[2020-08-18] MEDS: LACTATED RINGERS 1,000 ML 250 ML IV CONT (23:09)
[2020-08-18 23:13] LABS: Basophils Absolute Auto 0.02 K/mm3 (0.00-0.10); Basophils Percent Auto 0.1 % (0.0-1.0); Hematocrit 37.3 % (37.0-46.0); Hemoglobin 12.6 g/dL (12.4-15.3); Immature Granulocyte Absolute 0.07 K/mm3 (0.00-0.00); Immature Granulocyte Percent A 0.5 % (0.0-0.0); Lymphocytes Percent Auto 4.1 % (18.0-42.0); Mean Corpuscular HGB Conc 33.8 g/dL (32.0-36.0); Mean Corpuscular Hemoglobin 30.1 pg (27.0-31.0); Mean Corpuscular Volume 89.2 fL (78.0-102.0); Mean Platelet Volume 8.8 fl (8.7-11.0); Monocytes Absolute Auto 1.16 K/mm3 (0.10-0.90); Monocytes Percent Auto 7.9 % (2.0-11.0); Neutrophils Absolute Auto 12.9 K/mm3 (1.7-7.2); Neutrophils Percent Auto 87.4 % (50.0-70.0); Platelet Count Result 217 K/mm3 (150-420); Red Blood Count 4.18 M/mm3 (4.70-6.10); Red Cell Distribution Width 13.4 % (11.6-14.4); White Blood Count 14.8 K/mm3 (4.8-10.8)
[2020-08-18 23:38] LABS: INR 1.2; Prothrombin Time 12.3 Seconds (9.50-12.10)
[2020-08-18 23:48] LABS: Alanine Aminotransferase 20 U/L (16-63); Albumin Level 3.1 g/dL (3.4-5.0); Anion Gap 13 mmol/L (8-16); Aspartate Amino Transferase 13 U/L (15-37); Blood Urea Nitrogen 19 mg/dL (7-18); Calcium 8.8 mg/dL (8.5-10.1); Carbon Dioxide 22 mmol/L (21-32); Chloride 99 mmol/L (98-108); Estimated CRCL calculation 49 ml/min; Estimated Glomerular Filt Rate 53; Glucose 144 mg/dL (70-99); Osmolality Calculated 283 mOsm/kg (285-295); Potassium 3.5 mmol/L (3.5-5.1); Sodium 134 mmol/L (136-145); Troponin I 10.9 ng/L (0.00-60.4)
[2020-08-18 23:52] LABS: Lipase 41 U/L (73-393)
[2020-08-18 23:53] LABS: NT Pro B Type Natriuretic Pept 1062 pg/mL (0-125)
[2020-08-18 23:53] LABS: Magnesium 1.4 mg/dL (1.8-2.4)
[2020-08-18 23:58] LABS: Alkaline Phosphatase 108 U/L (46-116); Bilirubin,Total 1.2 mg/dL (0.00-1.00); Total Protein 7.5 g/dL (6.4-8.2)
--- NOTE | 2020-08-19 00:06 | ED.FEVER ---
HPI - Fever General Chief Complaint: Fever Stated Complaint: throwing up, high fever, head ache, chills Time Seen by Provider: 08/18/20 22:45 Source: patient and family Mode of arrival: ambulatory Limitations: altered mental status History of Present Illness HPI Narrative: Patient is brought in by . He has had dementia, and has been treated for that with multiple medications. He was taken off these because she says it made him worse. He has also had difficulty with word finding, expressive aphasia. She says he has not been well since Sunday, with headaches off and on and fever up to 104.8. This has been from an unclear cause. It appears he has had recurrent nausea and vomiting since Sunday, which have been moderately severe, and ongoing. He has denied abdominal discomfort. He has had no loose stools. She refuses to let me do a CT of his head, when I brought this up. She states he had a head CT in September of last year, and the neurologist states he could not have changed in that time. He was active on earlier in the day, mowing grass, and seemed to be doing well. She brings him in because of recurrent fever which comes back after the Tylenol she has given him wears off. He had been treated for a urinary tract infection over a week ago, and had been doing well until Sunday, this illness should be taken in that context. Nothing at home seemed to help. MD elicited complaint: fever and weakness Onset (ago): day(s) Exacerbating factors: nothing Relieving factors: nothing Associated symptoms: chills, headache, nausea, vomiting and other (clear thin runny nose, he has not complained of dysuria) Related Data Home Medications Medication Instructions Recorded Confirmed amlodipine-benazepril 1 cap PO HS 06/22/20 08/18/20 aspirin 81 mg PO DAILY 06/22/20 08/18/20 atorvastatin 40 mg PO DAILY 08/18/20 08/18/20 fluoxetine [Prozac] 20 mg PO DAILY 08/18/20 08/18/20 lisinopril 40 mg PO DAILY 08/18/20 08/18/20 pantoprazole 40 mg PO DAILY 08/18/20 08/18/20 trazodone 50 mg PO HS 08/18/20 08/18/20 Allergies Allergy/AdvReac Type Severity Reaction Status Date / Time No Known Allergies Allergy Verified 07/13/20 01:29 Review of Systems Constitutional: Constitutional: Reports chills and Reports fever(s) Eyes: Eyes: Reports no additional eye complaints ENT: Reports system reviewed and no additional complaints, except as documented Cardiovascular: Cardiovascular: Reports no additional cardiovascular complaints Respiratory: Respiratory: Reports no additional respiratory complaints Gastrointestinal: Gastrointestinal: Reports no additional gastrointestinal complaints Genitourinary: Genitourinary: Reports no additional male genitourinary complaints Musculoskeletal: Musculoskeletal: Reports no additional musculoskeletal complaints Integumentary/Breasts: Skin/Breast: Reports system reviewed and no additional complaints, except as docu Neurologic: Reports system reviewed and no additional complaints, except as documented Psychiatric: Psychiatric: Reports no additional psychiatric complaints Endocrine: Endocrine: Reports no additional endocrine complaints Hematologic/Lymphatic: Hematologic/Lymphatic: Reports no additional hematologic/lymphatic complaints Allergic/Immunologic: Allergic/Immunologic: Reports no additional allergic/immunologic complaints PMFSH Past Medical History Medical History Dementia early stages GERD (gastroesophageal reflux disease) Hernia, umbilical Hyperlipidemia Hypertension Peptic ulcer disease Surgical History Surgical History (Updated 08/19/20 @ 00:43 by Giovanni Townsend MD) History of hernia surgery S/P CABG x 3 Family History Family History (Updated 08/19/20 @ 00:43 by Giovanni Townsend MD) Other Family history non-contributory Social History Social History Smoking packs per day: 0.5 Smoking
[2020-08-19 00:23] LABS: Add Urine Microscopic? YES; Bilirubin Urine Negative (Negative); Blood Urine 2+ (Negative); Color Urine Yellow (Yellow); Glucose Urine UA Negative (Negative); Ketones Urine 1+ (Negative); Leukocyte Esterase Ur 2+ (Negative); Nitrate Urine Positive (Negative); Protein Urine 2+ (Negative); Specific Grav Ur 1.025 (1.010-1.020)
[2020-08-19] MEDS: MAGNESIUM SULF 2 GM/WATER 50ML 2 GM/50 ML BAG IVPB (00:32)
[2020-08-19] MEDS: POTASSIUM BICARBONATE 25 MEQ TABEF 50 MEQ PO (00:33)
[2020-08-19] MEDS: ACETAMINOPHEN 500 MG TABLET 1000 MG PO (00:34)
[2020-08-19 00:40] LABS: Appearance Urine Turbid (Clear); Squamous Epithelial Cell Urine None seen /hpf (Few); WBC Clumps Urine Present /hpf; WBC Urine >75 /hpf (0-3)
[2020-08-19 00:40] LABS: Lactic Acid Reflex 1.3 mmol/L (0.4-2.0)
[2020-08-19 00:41] LABS: Bacteria Urine 4+ /hpf; Mucus Urine Moderate /lpf
[2020-08-19 01:07] VITALS: TEMP 37.9
[2020-08-19 01:08] VITALS: TEMP 37.9
[2020-08-19] MEDS: GENTAMICIN SULFATE INJ 240 MG in DEXTROSE 5% 100 ML 100 MG IVPB (01:50)
[2020-08-19 02:26] VITALS: TEMP 37.4
[2020-08-19 02:50] VITALS: BP 113/61; PULSE 62; RESP 20; TEMP 37.3; O2SAT 97
== END 2020-08-19 02:55 | disposition home or self-care (01) ==
PROVIDERS: Emergency Provider Emergency Medicine; PCP Internal Medicine
DX: N12 Tubulo-interstitial nephritis, not specified as acute or chronic (principal); F03.90 Unspecified dementia, unspecified severity, without behavioral disturbance, psychotic disturbance, mood disturbance, and anxiety; K21.9 Gastro-esophageal reflux disease without esophagitis; E78.5 Hyperlipidemia, unspecified; I10 Essential (primary) hypertension; Z87.891 Personal history of nicotine dependence; Z95.1 Presence of aortocoronary bypass graft; Z79.899 Other long term (current) drug therapy
CPT/HCPCS: 36415; 71045; 74019; 80053; 81001; 83605; 83690; 83735; 83880; 84484; 85025; 85610; 85730; 87040; 87077; 87086; 87088; 87186; 93005; 96361; 96365; 96367; 96375; 99283; 99284; A9270; J0696; J1580; J2405; J3475; J7120

== ENCOUNTER 2020-08-23 11:38 | Outpatient (CLI) | payer MEDICARE, SELFPAY ==
[2020-08-23 11:48] LABS: Basophils Absolute Auto 0.03 K/mm3 (0.00-0.10); Basophils Percent Auto 0.4 % (0.0-1.0); Eosinophils Absolute Auto 0.12 K/mm3 (0.02-0.50); Eosinophils Percent Auto 1.7 % (1.0-6.0); Hematocrit 36.9 % (37.0-46.0); Immature Granulocyte Absolute 0.04 K/mm3 (0.00-0.00); Immature Granulocyte Percent A 0.6 % (0.0-0.0); Lymphocytes Absolute Auto 1.24 K/mm3 (1.10-4.50); Lymphocytes Percent Auto 17.8 % (18.0-42.0); Mean Corpuscular HGB Conc 32.5 g/dL (32.0-36.0); Mean Corpuscular Volume 92.3 fL (78.0-102.0); Mean Platelet Volume 9.3 fl (8.7-11.0); Monocytes Absolute Auto 0.68 K/mm3 (0.10-0.90); Monocytes Percent Auto 9.8 % (2.0-11.0); Neutrophils Absolute Auto 4.9 K/mm3 (1.7-7.2); Neutrophils Percent Auto 69.7 % (50.0-70.0); Platelet Count Result 314 K/mm3 (150-420); Red Cell Distribution Width 13.8 % (11.6-14.4)
[2020-08-23 11:49] LABS: Add Urine Microscopic? YES; Appearance Urine Clear (Clear); Bilirubin Urine Negative (Negative); Blood Urine 2+ (Negative); Color Urine Yellow (Yellow); Glucose Urine UA Negative (Negative); Ketones Urine Negative (Negative); Leukocyte Esterase Ur 1+ (Negative); Nitrate Urine Negative (Negative); Protein Urine Trace (Negative); Specific Grav Ur 1.025 (1.010-1.020); Urobilinogen Urine 0.2 mg/dL (0.2-1.0); pH Urine 5.5 (5.0-8.0)
[2020-08-23 12:14] LABS: Alanine Aminotransferase 54 U/L (16-63); Alkaline Phosphatase 109 U/L (46-116); Anion Gap 10 mmol/L (8-16); Aspartate Amino Transferase 44 U/L (15-37); Bacteria Urine 2+ /hpf; Bilirubin,Total 0.6 mg/dL (0.00-1.00); Blood Urea Nitrogen 19 mg/dL (7-18); Calcium 8.8 mg/dL (8.5-10.1); Carbon Dioxide 25 mmol/L (21-32); Chloride 106 mmol/L (98-108); Estimated Glomerular Filt Rate > 60; Glucose 112 mg/dL (70-99); Osmolality Calculated 295 mOsm/kg (285-295); Sodium 141 mmol/L (136-145); Squamous Epithelial Cell Urine Rare /hpf (Few); Total Protein 7.4 g/dL (6.4-8.2); WBC Urine 51-75 /hpf (0-3)
[2020-08-23 12:20] LABS: Potassium 4.8 mmol/L (3.5-5.1)
== END 2020-08-23 11:39 | disposition home or self-care (01) ==
LOC: CHSLAB 11:41
PROVIDERS: PCP Internal Medicine; Visit Provider Internal Medicine
DX: N39.0 Urinary tract infection, site not specified (principal); E86.0 Dehydration; J02.9 Acute pharyngitis, unspecified
CPT/HCPCS: 80053; 81001; 85025; 87081; 87086; 87088; 87880

== ENCOUNTER 2020-08-25 13:53 | Outpatient (RCR) | payer MEDICARE, SELFPAY ==
--- NOTE | 2020-08-25 15:35 | STOPEVAL ---
Thank you for referring Axel Reyes to [facility].? The patient is scheduled to be seen for therapy? 1x/week for 10 weeks. Please review, sign, date and return this plan of care ARETHA. I agree with and certify that the following plan of care is medically necessary. 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 Respiratory History Hx Respiratory Disorders No Significant History Gastrointestinal History Hx Gastroesophageal Reflux Disease Yes Hx Hernia Yes: INGUINAL HERNIA REPAIR 2008 Hx Ulcer Yes: BLEEDING ULCER - STATES HEALED NOW Genitourinary History Hx Benign Prostatic Hyperplasia Yes Hx Other Genitourinary Disorders Yes: FREQUENT URINATION chronic UTI's Musculoskeletal History Hx Arthritis Yes Hx Back Pain Yes Hx Degenerative Disk Disease Yes Hx Spinal Surgery Yes: FUSION 2001 Hematological History Hx Hematological Disorders No Significant History Endocrine History Hx Endocrine Disorders No Significant History HEENT History Hx Dental Problems Yes: FULL UPPER DENTURE, LOWER PARTIAL Hx Other HEENT Disorders Yes: GLASSES, AFOGNAK-NO HEARING AIDS Integumentary History Hx Skin Disorders No Significant History Reproductive History Hx Reproductive Disorders No Significant History Psychosocial History Hx Psychiatric Disorders No Significant History Pain History History of Any Previous or Ongoing No Significant History Instance of Pain Anesthesia History Hx Anesthesia Reactions No Significant History Other History Hx Implanted Device Yes: BACK Evaluation Information Problem Diagnosis 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
--- NOTE | 2020-10-21 08:14 | PCSTNOTE ---
Patient's called & cancelled scheduled appointment this date due to patient being sick. Patient is scheduled to be seen next week for .
--- NOTE | 2020-10-28 08:33 | PEDREH ---
I agree with and certify that the above recommended change(s) to the plan of care are medically necessary. ? Referring Physician?Date Admitting Provider: Attending Provider: ANIYA LOZADA Referring Provider: SPEECH THERAPY PROGRESS REPORT Axel Reyes has completed a total number of 8 out of 9 treatment sessions for Primary Progressive Aphasia (G31.01) (F02.80) since the initial evaluation on 08/25/20. Summary of Progress: Patient and family have demonstrated consistent attendance and good compliance of home program. Strategies to promote improvements with set goals are reviewed on a regular basis to facilitate carry over and follow through with targeted goals. Patient has demonstrated excellent progress over this past quarter as evidenced by meeting 4 set goals and progressing in all other goals to improve expressive language and fluency of speech. Patient met the goals for moderate/complex yes/no questions, moderate/complex paragraph recall, automatic naming, and confrontational naming skills. The SLUMS was given to assess cognitive skills on 09/01/20 and the patient received a score of 17/30 on it. 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 It is recommended that the patient continue with ST treatment to target the patient's expressive language skills and fluency of speech to improve overall communication abilities. Accuracies on specific goals can be viewed in the plan of care update and new goals have been set to continue with progress to help patient reach his optimal potential to be able to communicate his daily and medical needs for health and safety. The patient recently had extensive testing done with a neuropsychologist on October 09, 2020 and the patient and reported that the doctor thinks the decline in communication abilities was due to a previous stroke. The patient will be undergoing testing in the upcoming weeks to assess the problem in more detail. Recommendations: Thank you for referring Axel Reyes to [facility].? The patient is scheduled to be seen for therapy? 1x/week for 12 weeks.? Please review, sign, date and return this plan of care ARETHA.
--- NOTE | 2020-11-24 16:04 | PCSTNOTE ---
This treatment is being continued on visit number [id number]. Please see documentation on both accounts to view progress. Completed interventions, outcomes, and problems have been marked as Inactive to facilitate the copying of the Care plan routine for recurring accounts.
== END 2020-11-23 23:59 | disposition home or self-care (01) ==
LOC: CHSST 13:53
DX: G31.01 Pick's disease (principal); F02.80 Dementia in other diseases classified elsewhere, unspecified severity, without behavioral disturbance, psychotic disturbance, mood disturbance, and anxiety; R41.841 Cognitive communication deficit
CPT/HCPCS: 92507; 92523

== ENCOUNTER 2020-10-26 10:22 | Outpatient (CLI) | payer MEDICARE, SELFPAY ==
--- NOTE | ~2020-10-26 | MR_ITS ---
EXAMINATION: MR brain/brain stem wo con EXAM DATE: 10/26/2020 11:19 INDICATION: Cognitive communication deficit, ischemic stroke. Trouble finding words. TECHNIQUE: Magnetic resonance imaging (MRI) of the brain/brain stem obtained without contrast. Sagitt al T1, axial diffusion, gradient echo (T2*), T1, T2, FLAIR sequences obtained. Comparison is made to prior examination from 09/30/2019. FINDINGS: There are no areas of restricted diffusion to suggest acute infarction. There is no acute hemorrhage seen on the T2*, a hemosiderin sensitive sequence. No intraparenchymal brain mass lesion. There is mild periventricular and subcortical T2/FLAIR signal hyperintensity, nonspecific but probab ly related to small vessel ischemic disease (microangiopathy). There is moderate prominence of the sulci and ventricles related to cerebral atrophy. There are no extra-axial collections. Flow voids are seen in the cerebral arteries on the T2-weighted sequences consistent with their expected patenc y. The orbits are unremarkable. Soft tissue is unremarkable. IMPRESSION: 1. No acute intracranial findings. 2. Chronic age related findings. Reviewed, dictated and finalized at location A.
== END 2020-10-26 10:23 | disposition home or self-care (01) ==
PROVIDERS: PCP Internal Medicine
DX: G31.01 Pick's disease (principal); F02.81 Dementia in other diseases classified elsewhere, unspecified severity, with behavioral disturbance; I63.9 Cerebral infarction, unspecified
CPT/HCPCS: 70551

== ENCOUNTER 2020-11-25 10:00 | Outpatient (RCR) | payer MEDICARE, SELFPAY ==
--- NOTE | 2020-11-24 16:05 | PCSTNOTE ---
The treatment documented on this account is a continuation of the treatment documented on visit number [id number]. Please see documentation on both accounts to view progress. The Plan of Care has been transitioned and updated within the new A#. I have addressed and agree with the discipline specific Problems, Interventions, and Goals for the current certification period. Completed interventions, outcomes, and problems have been marked as Inactive to facilitate the copying of the Care plan routine for recurring accounts.
--- NOTE | 2021-01-03 10:14 | PCSTNOTE ---
Patient's ST appointment was cancelled on 12-30-20 due to clinician being out of the office.
--- NOTE | 2021-02-02 15:39 | PCSTNOTE ---
Admitting Provider: Attending Provider: ANIYA LOZADA Patient:Axel Reyes Date of :1945 [address] DISCHARGE Patient has not returned for any further treatments since 01/20/2021, therefore he will be discharged at this time. Patient?s initial visit was on 08/25/2020 and he had a total of 18 visits. The goals have been partially met. Improvement noted in score of the SLUMS which was initially 17/30 on 09/01/20 and was readministered on 09/30/20 with a score of 26/30. The patient met the goals for moderate/complex yes/no questions, paragraph recall (immediate), automatic speech tasks, confrontational naming, production of sentence with a dawson word, and production of connected speech while describing pictures. The patient continues to struggle to speak in longer utterances along with having lengthy conversations but is compensating for language deficits to meet his needs and wants. The patient and his both feel that the patient has shown good progression and they are happy with where he is at currently. Thank you for referring this patient to [facility]. Please review, sign, date and return this discharge summary ARETHA. I have been updated about the patient's current status and I agree with discharge from the above service at this time. Referring Physician Date
== END 2021-01-20 16:17 | disposition home or self-care (01) ==
LOC: CHSST 10:00
DX: G31.01 Pick's disease (principal); F02.80 Dementia in other diseases classified elsewhere, unspecified severity, without behavioral disturbance, psychotic disturbance, mood disturbance, and anxiety; R41.841 Cognitive communication deficit
CPT/HCPCS: 92507

== ENCOUNTER 2021-03-07 13:55 | Outpatient (CLI) | payer MEDICARE, SELFPAY ==
--- NOTE | ~2021-03-07 | XR_ITS ---
XR chest 2V 03/07/2021 14:40 Indication: Cough and wheezing Procedure: 2 view chest Comparison: 08/18/2020 Findings: Status post median sternotomy for CABG. No focal air space disease, pulmonary edema, pleura l effusion or suspected pneumothorax. There is a calcified granuloma right mid thorax. No acute osseo us abnormality. Impression: 1: No acute cardiopulmonary disease. Reviewed, dictated and finalized at location B. [employer] Impression: 1: No acute cardiopulmonary disease.
== END 2021-03-07 13:56 | disposition home or self-care (01) ==
LOC: CHSIMG 13:59
PROVIDERS: PCP Internal Medicine; Visit Provider Internal Medicine
DX: R05.9 Cough, unspecified (principal); R06.2 Wheezing
CPT/HCPCS: 71046

== ENCOUNTER 2021-04-07 10:00 | Outpatient (CLI) | payer MEDICARE, SELFPAY ==
[2021-04-07 12:19] LABS: SARS-CoV-2 RNA PCR Negative (Negative)
== END 2021-04-07 10:01 | disposition home or self-care (01) ==
LOC: CHSLAB 10:03
PROVIDERS: PCP Internal Medicine; Visit Provider Internal Medicine
DX: Z20.822 Contact with and (suspected) exposure to COVID-19 (principal)
CPT/HCPCS: C9803; U0003; U0005

== ENCOUNTER 2021-09-27 07:49 | Outpatient (CLI) | payer MEDICARE, SELFPAY ==
--- NOTE | ~2021-09-27 | MR_ITS ---
EXAMINATION: MR brain/brain stem wo con DATE: 09/27/2021 08:51 INDICATION: Memory loss. TECHNIQUE: Magnetic resonance imaging (MRI) of the brain and brainstem was performed without intraven ous contrast. COMPARISON: Brain MRI 10/26/2020 FINDINGS: There are scattered areas of nonspecific increased T2-weighted signal intensity in the cere bral white matter. There is no intracranial hemorrhage, acute infarction, or abnormal intracranial ma ss lesion. The ventricles are normal in size. The orbits are normal. There is mild mucosal thickening in the paranasal sinuses. There is a trace left mastoid effusion. IMPRESSION: 1. Stable moderate nonspecific cerebral white matter disease, which likely represents chronic small v essel ischemic disease. Reviewed, dictated and finalized at location A. IMPRESSION: 1. Stable moderate nonspecific cerebral white matter disease, which likely repr esents chronic small vessel ischemic disease.
== END 2021-09-27 07:50 | disposition home or self-care (01) ==
PROVIDERS: PCP Internal Medicine; Visit Provider Internal Medicine
DX: R41.3 Other amnesia (principal)
CPT/HCPCS: 70551

== ENCOUNTER 2021-11-17 15:13 | Outpatient (CLI) | payer MEDICARE, SELFPAY ==
--- NOTE | ~2021-11-17 | XR_ITS ---
XR elbow RT min 3V 11/17/2021 15:36 INDICATION: Right elbow pain PROCEDURE: 4 views right elbow COMPARISON: No prior studies for comparison. FINDINGS: Fracture, dislocation or subluxation is not identified. There is a benign-appearing styloid process originating from the ventral aspect of the distal humerus. No significant joint effusion. Th e soft tissues appear within normal limits. No foreign bodies are identified. IMPRESSION: 1: NO ACUTE BONE OR JOINT ABNORMALITY IDENTIFIED. Reviewed, dictated and finalized at location A.
--- NOTE | ~2021-11-17 | XR_ITS ---
XR hand RT min 3V 11/17/2021 15:36 Indication: Right hand pain Procedure: 3 views right hand Comparison: No prior studies for comparison. Findings: There is degenerative change of the first IP joint. Normal mineralization. No acute fractur e, subluxation or dislocation. No focal soft tissue abnormality. No foreign body. Small loose body id entified adjacent to the third PIP joint. No foreign bodies. Impression: 1: No acute bone or joint abnormality. Reviewed, dictated and finalized at location A. Impression: 1: No acute bone or joint abnormality.
== END 2021-11-17 15:14 | disposition home or self-care (01) ==
LOC: CHSIMG 15:16
PROVIDERS: PCP Internal Medicine; Visit Provider Internal Medicine
DX: S69.91XA Unspecified injury of right wrist, hand and finger(s), initial encounter (principal); S59.901A Unspecified injury of right elbow, initial encounter
CPT/HCPCS: 73080; 73130

== ENCOUNTER 2021-11-22 10:25 | Outpatient (CLI) | payer MEDICARE, SELFPAY ==
--- NOTE | ~2021-11-22 | XR_ITS ---
XR hand RT min 3V DATE: 11/22/2021 10:58 INDICATION: Right hand pain TECHNIQUE: 3 views with anterior splint COMPARISON: 11/17/2021 right hand FINDINGS: The anterior splint obscures to some extent the bone detail. No fracture, dislocation, periosteal reaction or bone destruction is detected. There is spurring at the interphalangeal joint of the first digit consistent with osteoarthritis. The re is mild osteoarthritis at the proximal interphalangeal joint of the third digit with a small degen erative ossicle adjacent to the joint. IMPRESSION: Mild osteoarthritis Reviewed, dictated and finalized at location A. IMPRESSION: Mild osteoarthritis
== END 2021-11-22 10:26 | disposition home or self-care (01) ==
LOC: CHSIMG 10:27
PROVIDERS: PCP Internal Medicine; Visit Provider Internal Medicine
DX: M79.641 Pain in right hand (principal)
CPT/HCPCS: 73130

== ENCOUNTER 2021-11-23 15:43 | Outpatient (CLI) | payer MEDICARE, SELFPAY ==
--- NOTE | ~2021-11-23 | CT_ITS ---
EXAMINATION: CT hand RT wo con DATE: 11/23/2021 16:06 INDICATION: Right hand pain. TECHNIQUE: Computed tomography (CT) of the right hand was performed without intravenous contrast. Aut omated exposure control and iterative reconstruction technique were employed. The dose-length product was 459.42 mGy-cm. COMPARISON: Right hand radiographs 11/22/2021, 11/17/2021 FINDINGS: Bone alignment is normal. No fracture. There is mild osteoarthritis of triscaphe joint and first and second carpometacarpal joints. There is moderate osteoarthritis of first metacarpophalangea l joint and mild osteoarthritis of second and fifth metacarpophalangeal joints. There is mild osteoar thritis of some of the interphalangeal joints. There is moderate osteoarthritis of first interphalang eal joint. IMPRESSION: 1. No fracture. 2. Polyarticular osteoarthritis. Reviewed, dictated and finalized at location A.
== END 2021-11-23 15:44 | disposition home or self-care (01) ==
LOC: CHSIMG 15:45
PROVIDERS: PCP Internal Medicine; Visit Provider Internal Medicine
DX: S62.91XD Unspecified fracture of right hand, subsequent encounter for fracture with routine healing (principal)
CPT/HCPCS: 73200

== ENCOUNTER 2022-01-05 10:00 | Outpatient (RCR) | payer MEDICARE, SELFPAY ==
--- NOTE | 2022-01-03 10:51 | PTOPEVAL1 ---
Assessment and note entered by Jany Vuong, PT Evaluation Information Diagnosis Abnormality of Gait Onset 12/26/21 Subjective Information Axel presents with his who gives his history for him as he does not talk very much. She reports he started having trouble with his speech in June 2020 after having a prostate surgery. She reports he has undergone extensive testing including MRI's, psychiatric evaluation, and neurology evaluation. He has been diagnosed with primary progressive aphasia. She notes he is also starting to have some trouble with his balance. He had a fall about 2 months ago when he tripped while walking in grass. He fell onto his right elbow and developed bursitis. He has been using an elbow brace for the elbow since then but his doctor did not want to drain the elbow due to risk of infection. He also had a fall in the bathroom at night about 4 weeks ago. His is unsure what happened that time, she states she found him on his knees. They did not have a nightlight at the time of the fall however, she has since placed night lights in the bathroom and the hallway. She also notes he sometimes has trouble getting out of his recliner. She states since the onset of the primary progressive aphasia, he does not do a whole lot besides sit in his recliner. She can sometimes get him to walk around the block with her. He has a cane at home but does not use it very often. Reported Pain Level Pain Score 0: Self Report Assessment PT Clinical Summary Axel Reyes presents with decreased gait and balance that has developed over the last 1.5 years . He has been diagnosed with primary progressive aphasia and is mostly non-verbal. His is reporting he has had 2 falls in the last two months. He objectively demonstrates decreased LE strength, impaired gait, and decreased dynamic balance. His score on the Tinetti Balance Assessment indicates he is a moderate fall risk. He will benefit from skilled PT to address these limitations. Plan of Care Interventions Gait Training,Neuro Re-education,Therapeutic Activities,Therapeutic Exercise PT Services Indicated Yes Treatment Frequency and 2 times a week for 8 visits Duration These treatments will address the objective and functional deficits as define
--- NOTE | 2022-01-06 09:41 | OTOPEVDC ---
Assessment and note entered by Carlita Magana, OT Thank you for referring Axel Reyes to [facility] [place].? An evaluation has been completed. No further treatment is needed. Evaluation Information Assessment Status Evaluation Diagnosis Memory loss Subjective Information The patient's family reports no changes in UE function, memory or issues with ADLs. The spouse reports the patient performs all self care tasks independently and she is present for safety when showering. Reported Pain Level Pain Score 1: Self Report Assessment OT Clinical Summary The patient does not require skilled OT at this time due to no changes in memory, UE ROM or strength, and patient independent with all ADLs at this time. The patient demonstrates difficulty with answering questions and testing due to aphasia, the patient's spouse relayed accuracy for information at this time. The patient was educated on continuing to communicate with spouse and family and to maintain exercise throughout his day to maintain health. Plan of Care OT Services Indicated No
== END 2022-01-18 23:59 | disposition home or self-care (01) ==
LOC: CHSST 10:00
DX: R47.01 Aphasia (principal); R41.3 Other amnesia; R26.9 Unspecified abnormalities of gait and mobility
CPT/HCPCS: 97110; 97112; 97162; 97165; 97530

== ENCOUNTER 2022-01-22 20:29 | Emergency (ER) | payer MEDICARE, SELFPAY ==
--- NOTE | ~2022-01-22 | XR_ITS ---
EXAMINATION: XR ribs RT 2V Exam Date/Time: 01/22/2022 20:47 CDT HISTORY: Fell onto tub. LATERAL SIDE LOWER RIGHT RIB PAIN. Comparison: 03/07/2021. RESULT: Lines, tubes, and devices: Intact sternotomy wires. Posterior lumbar fusion hardware. Surgical clips over the mediastinum. Lungs and pleura: Clear. Senescent changes in the lungs. Cardiomediastinal silhouette: Stable. Other: No acute osseous or upper abdominal finding. IMPRESSION: No acute osseous finding in the right ribs. Reviewed, dictated and finalized at location K.
[2022-01-22 20:40] VITALS: BP 139/71; PULSE 76; RESP 16; TEMP 36.6; O2SAT 95
--- NOTE | 2022-01-22 20:43 | ED.FALL ---
HPI - Fall General Chief Complaint: Fall Stated Complaint: fell tonight;rib injury Time Seen by Provider: 01/22/22 20:39 Source: patient, family and RN notes reviewed Mode of arrival: ambulatory Limitations: no limitations History of Present Illness HPI Narrative: patient was in the bathroom when he tripped up on his pajamas fell on to the edge of the bathtub onto his right ribs. Palpation and deep breaths makes it hurt worse sitting still seems to make it feel better. complaint: fall Onset (ago): hour(s) (1) Fall from: standing Fall witnessed: yes, by family Place fall occurred: home Loss of consciousness: none Symptoms prior to fall: none Context: tripped/slipped Related Data Home Medications Medication Instructions Recorded Confirmed amlodipine 5 mg-benazepril 40 mg 1 cap PO HS 06/22/20 01/22/22 capsule aspirin 81 mg tablet,delayed 81 mg PO DAILY 06/22/20 01/22/22 release atorvastatin 40 mg tablet 40 mg PO DAILY 08/18/20 01/22/22 fluoxetine 20 mg capsule (Prozac) 20 mg PO DAILY 08/18/20 01/22/22 lisinopril 40 mg tablet 40 mg PO DAILY 08/18/20 01/22/22 pantoprazole 40 mg tablet,delayed 40 mg PO DAILY 08/18/20 01/22/22 release trazodone 50 mg tablet 50 mg PO HS 08/18/20 01/22/22 Allergies Allergy/AdvReac Type Severity Reaction Status Date / Time No Known Allergies Allergy Verified 07/13/20 01:29 Review of Systems Review of Systems: All systems reviewed & are unremarkable except as noted in HPI and below PMFSH Past Medical History Medical History Dementia early stages GERD (gastroesophageal reflux disease) Hernia, umbilical Hyperlipidemia Hypertension Peptic ulcer disease Surgical History Surgical History History of hernia surgery S/P CABG x 3 Family History Family History (Updated 08/19/20 @ 00:43 by Giovanni Townsend MD) Other Family history non-contributory Social History Social History Smoking packs per day: 0.5 Smoking cigarettes per day: 10.0 Smoking status: Former smoker Tobacco type: cigarettes Second hand tobacco smoke exposure: No Additional smoking assessment comments: PT UNABLE TO RECALL SMOKING HX, STATES QUIT OVER 30+ YRS AGO Alcohol intake: never Substance use: never Substance use type: does not use Gender identity (if verbalized by the patient): Male Spiritual care concerns: No Exam Const: General: healthy appearing, no acute distress and alert Nutritional Appearance: well nourished Orientation/consciousness: patient oriented x3 Limitations: language barrier ( Moderate aphasia) HENMT: Head: normal to inspection Ears: external ears normal Eyes: Conjunctivae: conjunctivae normal Pupils: Equal, round and reactive pupils present EOM: EOMs intact bilaterally Neck: Neck: normal visual inspection Chest: Chest palpation & inspection: tenderness rib right posterior-axillary line involving the 8th rib, involving the 9th rib and involving the 10th rib Resp: Effort & Inspection: normal respiratory effort Auscultation: clear to auscultation bilaterally Cardio: Rate: regular rate Rhythm: regular rhythm GI: GI Palp: Yes Soft to palpation and No Tenderness to palpation present (GI) Auscultation: normal bowel sounds Back/Spine/Pelvis: Cervical Spine: cervical ROM normal Thoracic/Lumbar Spine: thoraco-lumbar ROM normal Skin: General skin exam: normal color Rashes: no rashes Neuro: General: patient oriented x3, moves all extremities, no focal motor deficits and CN's II-XI intact bilaterally Speech: normal speech Gait exam (Neuro): Normal gait present Extrem: General: normal to inspection and no clubbing, cyanosis or edema Psych: Mental Status: mental status grossly normal Affect: normal affect Attitude: cooperative Course Vital Signs Vital signs: Vital Signs Temperature
[2022-01-22 21:44] VITALS: BP 132/70; PULSE 72; RESP 18; TEMP 36.6; O2SAT 100
== END 2022-01-22 21:44 | disposition home or self-care (01) ==
PROVIDERS: Emergency Provider Emergency Medicine; PCP Internal Medicine
DX: S20.211A Contusion of right front wall of thorax, initial encounter (principal); W19.XXXA Unspecified fall, initial encounter; K21.9 Gastro-esophageal reflux disease without esophagitis; E78.5 Hyperlipidemia, unspecified; I10 Essential (primary) hypertension; Z87.891 Personal history of nicotine dependence
CPT/HCPCS: 71100; 99283

== ENCOUNTER 2022-01-25 19:41 | Inpatient (IN) | payer MEDICARE, SELFPAY ==
[2022-01-25] VITALS (36 sets, daily range): BP systolic 104–153; BP diastolic 57–88; PULSE 79–101; RESP 17–27; TEMP 37.5–39.2; O2SAT 89–94
--- NOTE | ~2022-01-25 | CT_ITS ---
EXAMINATION: CT diagnostic chest wo con DATE: 01/25/2022 21:24 INDICATION: sob, fever, right chest wall pain TECHNIQUE: Computed tomography (CT) of the chest was performed without intravenous contrast. Automate d exposure control and iterative reconstruction technique were employed. The dose-length product was 230.44 mGy-cm. COMPARISON: X-ray RIBS 01/22/2022. FINDINGS: CHEST: Thoracic aorta: No significant dilation. Arch calcification. Lung parenchyma and airways: Motion artifact. Right upper lobe granuloma. Senescent changes. Bibasila r scar and atelectasis. Subsegmental atelectasis or consolidation in the dependent right lower lung. Thoracic inlet, axillae and chest wall: No thyroid or soft tissue mass. No axillary lymphadenopathy. Intact sternotomy wires. Mediastinum: No mass or lymphadenopathy. Heart and pericardium: Prior CABG. Cardiomegaly. No pericardial effusion. Coronary artery calcifications: Moderate. Pleura: Trace right pleural fluid. Upper abdomen: No significant finding. Surgical dianna in the stomach. Thoracic bones: No acute osseous finding in the chest. IMPRESSION: Motion limited examination. Subsegmental atelectasis or consolidation in the right lower lung. Trace right pleural effusion. Reviewed, dictated and finalized at location K. IMPRESSION: Motion limited examination. Subsegmental atelectasis or consolidation in the ri ght lower lung. Trace right pleural effusion.
--- NOTE | 2022-01-25 20:28 | ECG_ITS ---
Measurements Intervals [place] Rate: 93 P: 27 DC: 161 QRS: 42 QRSD: 102 T: 52 QT: 366 QTc: 457 Interpretive Statements SINUS RHYTHM WITH FREQUENT VENTRICULAR PREMATURE COMPLEXES NONSPECIFIC ST & T-WAVE ABNORMALITY ABNORMAL ECG COMPARED TO ECG 08/18/2020 22:52:04 NO SIGNIFICANT CHANGES Electronically Signed On 01-26-2022 9:34:04 CDT by Terrance Esteves M.D.
[2022-01-25 20:40] LABS: Basophils Absolute Auto 0.02 K/mm3 (0.00-0.10); Basophils Percent Auto 0.4 % (0.0-1.0); Eosinophils Absolute Auto 0.02 K/mm3 (0.02-0.50); Eosinophils Percent Auto 0.4 % (1.0-6.0); Hematocrit 35.7 % (37.0-46.0); Immature Granulocyte Absolute 0.02 K/mm3 (0.00-0.00); Immature Granulocyte Percent A 0.4 % (0.0-0.0); Lymphocytes Absolute Auto 0.52 K/mm3 (1.10-4.50); Lymphocytes Percent Auto 9.8 % (18.0-42.0); Mean Corpuscular HGB Conc 33.6 g/dL (32.0-36.0); Mean Corpuscular Hemoglobin 29.6 pg (27.0-31.0); Mean Corpuscular Volume 88.1 fL (78.0-102.0); Mean Platelet Volume 9.2 fl (8.7-11.0); Monocytes Absolute Auto 0.78 K/mm3 (0.10-0.90); Monocytes Percent Auto 14.7 % (2.0-11.0); Neutrophils Absolute Auto 3.9 K/mm3 (1.7-7.2); Neutrophils Percent Auto 74.3 % (50.0-70.0); Platelet Count Result 202 K/mm3 (150-420); Red Blood Count 4.05 M/mm3 (4.70-6.10); Red Cell Distribution Width 13.4 % (11.6-14.4); White Blood Count 5.3 K/mm3 (4.8-10.8)
[2022-01-25] MEDS: ONDANSETRON INJ 4 MG/2 ML VIAL IV PUSH (20:43)
[2022-01-25] MEDS: MORPHINE SULFATE (*CRX) 2 MG/ML INJ IV PUSH (20:44)
[2022-01-25] MEDS: ACETAMINOPHEN 500 MG TABLET 650 MG PO (20:45)
[2022-01-25] MEDS: IBUPROFEN 400 MG TABLET 800 MG PO (20:46)
[2022-01-25 20:55] LABS: INR 1.1; Partial Thromboplastin Time 28.7 SEC (23.90-30.70); Prothrombin Time 11.5 Seconds (9.50-12.10)
[2022-01-25 20:59] LABS: Alanine Aminotransferase 34 U/L (16-63); Albumin Level 3.2 g/dL (3.4-5.0); Alkaline Phosphatase 145 U/L (46-116); Anion Gap 12 mmol/L (8-16); Aspartate Amino Transferase 31 U/L (15-37); Bilirubin,Total 0.7 mg/dL (0.00-1.00); Blood Urea Nitrogen 21 mg/dL (7-18); CRP 2.5 mg/dL (0.0-0.9); Calcium 8.9 mg/dL (8.5-10.1); Carbon Dioxide 23 mmol/L (21-32); Chloride 103 mmol/L (98-108); Estimated CRCL calculation 50 ml/min; Estimated Glomerular Filt Rate 58; Glucose 109 mg/dL (70-99); Osmolality Calculated 290 mOsm/kg (285-295); Potassium 3.9 mmol/L (3.5-5.1); Sodium 138 mmol/L (136-145); Total Protein 7.4 g/dL (6.4-8.2); Troponin I 9.2 ng/L (0.00-60.4)
[2022-01-25 21:42] LABS: Appearance Urine Clear (Clear); Bilirubin Urine Negative (Negative); Blood Urine Negative (Negative); Glucose Urine UA Negative (Negative); Ketones Urine Negative (Negative); Leukocyte Esterase Ur Negative LEU/UL (Negative); Nitrate Urine Negative (Negative); Protein Urine Trace (Negative); Urobilinogen Urine 0.2 mg/dL (0.2-1.0)
[2022-01-25 21:46] LABS: Add Urine Microscopic? YES; Bacteria Urine Trace /hpf; Color Urine Light Yellow (Yellow); RBC Urine 0-2 /hpf (0-2); Squamous Epithelial Cell Urine Rare /hpf (Few); WBC Urine 0-3 /hpf (0-3)
[2022-01-25 22:55] LABS: Influenza A QL RT-PCR Negative (Negative); Influenza B QL RT-PCR Negative (Negative); SARS-CoV-2 RNA PCR Positive (Negative)
[2022-01-25 23:12] LABS: Strep Group A RT-PCR Negative (Negative)
--- NOTE | 2022-01-25 23:12 | PC.NURSE ---
Pt resting comfortably, VSS, IVF infusing per order, Pt awake, spoke c pts about covid + test results and POC will be discussed c her per ERP.
[2022-01-25] MEDS: AZITHROMYCIN 250 MG TABLET 500 MG PO (23:33)
[2022-01-25] MEDS: SODIUM CHLORIDE 0.9% IV 1,000 ML 150 ML IV CONT (23:35)
--- NOTE | 2022-01-25 23:45 | ED.FEVER ---
HPI - Fever General Chief Complaint: Fever Stated Complaint: fever, cant walk Time Seen by Provider: 01/25/22 19:45 Source: patient, family and RN notes reviewed Mode of arrival: wheelchair Limitations: no limitations History of Present Illness MD elicited complaint: fever and weakness Onset (ago): day(s) (1) Measured temperature: 102 C Exacerbating factors: nothing Relieving factors: acetaminophen Associated symptoms: chills and myalgias Treatments prior to arrival fever: acetaminophen Related Data Home Medications Medication Instructions Recorded Confirmed amlodipine 5 mg-benazepril 40 mg 1 cap PO HS 06/22/20 01/25/22 capsule aspirin 81 mg tablet,delayed 81 mg PO DAILY 06/22/20 01/25/22 release atorvastatin 40 mg tablet 40 mg PO DAILY 08/18/20 01/25/22 fluoxetine 20 mg capsule (Prozac) 40 mg PO DAILY 08/18/20 01/25/22 pantoprazole 40 mg tablet,delayed 40 mg PO DAILY 08/18/20 01/25/22 release Allergies Allergy/AdvReac Type Severity Reaction Status Date / Time No Known Allergies Allergy Verified 07/13/20 01:29 Review of Systems Review of Systems: All systems reviewed & are unremarkable except as noted in HPI and below Constitutional: Constitutional: Reports no additional constitutional complaints and Reports fever(s) Eyes: Eyes: Reports no additional eye complaints ENT: Reports system reviewed and no additional complaints, except as documented Cardiovascular: Cardiovascular: Reports no additional cardiovascular complaints Respiratory: Respiratory: Reports no additional respiratory complaints Comments: right lateral chest wall pain. Gastrointestinal: Gastrointestinal: Reports no additional gastrointestinal complaints Musculoskeletal: Musculoskeletal: Reports no additional musculoskeletal complaints Integumentary/Breasts: Skin/Breast: Reports system reviewed and no additional complaints, except as docu Neurologic: Reports system reviewed and no additional complaints, except as documented Psychiatric: Psychiatric: Reports no additional psychiatric complaints Endocrine: Endocrine: Reports no additional endocrine complaints Hematologic/Lymphatic: Hematologic/Lymphatic: Reports no additional hematologic/lymphatic complaints Allergic/Immunologic: Allergic/Immunologic: Reports no additional allergic/immunologic complaints PMFSH Past Medical History Medical History Community acquired pneumonia COVID-19 Dementia early stages GERD (gastroesophageal reflux disease) Hernia, umbilical Hyperlipidemia Hypertension Peptic ulcer disease Sepsis Surgical History Surgical History History of hernia surgery S/P CABG x 3 Family History Family History Other Family history non-contributory Social History Social History Smoking packs per day: 0.5 Smoking cigarettes per day: 10.0 Smoking status: Former smoker Tobacco type: cigarettes Second hand tobacco smoke exposure: No Additional smoking assessment comments: PT UNABLE TO RECALL SMOKING HX, STATES QUIT OVER 30+ YRS AGO Alcohol intake: never Substance use: never Substance use type: does not use Gender identity (if verbalized by the patient): Male Spiritual care concerns: No Exam Const: General: no acute distress and well nourished Nutritional Appearance: well nourished Orientation/consciousness: patient oriented x3 Limitations: no limitations HENMT: Head: normal to inspection Ears: external ears normal, TM's normal bilaterally and EAC's normal Face/Nose/Sinus: Normal external nose present, Normal nares present, normal facial exam and sinuses nontender Face and sinus: normal facial exam and sinuses nontender Mouth: Yes Normal oral and palatal mucosa present and Yes moist mucous membranes Teet
[2022-01-25 23:46] LABS: Base Excess ABG -4.2 mmol/L (0-2); Device ROOM AIR; HCO3 ABG 19.5 mmol/L (23-29); Modified Allen's Test Pass; Oxygen Content ABG 14.3 %vol (16.0-22.0); Oxygen Saturation ABG 89.5 % (95-97); Oxyhemoglobin 89.1 % (94-100); PCO2 ABG 31.5 mmHg (35-45); PO2 ABG 58.2 mmHg (75-85); Site Drawn RIGHT RADIAL; Total Hemoglobin 11.4 g/dL (12.0-18.0); pH ABG 7.41 (7.35-7.45)
[2022-01-26] VITALS (11 sets, daily range): BP systolic 114–137; BP diastolic 60–73; PULSE 63–83; RESP 16–18; TEMP 36.7–37.3; O2SAT 93–97; BMI 25.4
--- NOTE | 2022-01-26 | PC.NURSE ---
Orders received from ERP and hospitalist for full admission. Discussed c pt and on POC. VSS, monito shows NSR.
--- NOTE | 2022-01-26 00:20 | PC.NURSE ---
Call to floor and spoke eder Jackson RN charge and awaiting call back for bed assignment.
--- NOTE | 2022-01-26 01:38 | ADMGEN ---
This patient, Axel Reyes, was admitted to 2nd Floor Room 208-2 d/t COVID and weakness. Patient oriented to hospital policies and general routines including ID bracelet, bed and alarms, visiting hours, pain management, procedures, bathroom and other care routines, personal items, smoking policy, room service/diet, and visiting hours. Patient is aphasic, able to answer simple (1-2 word or yes/no) questions, unable to determine metal status. Patient seems to understand. Paper and pen and communication board in room. Information on how to activate the Rapid Response Team has been discussed. Patient are encouraged to report perceived risks to care and to ask questions if they do not understand what they are told or what they should do.
--- NOTE | 2022-01-26 02:03 | PC.NURSE ---
Spoke with pt , states he has already had flu shot.
[2022-01-26 05:12] LABS: Hematocrit 33.5 % (37.0-46.0); Hemoglobin 10.9 g/dL (12.4-15.3); Mean Corpuscular HGB Conc 32.5 g/dL (32.0-36.0); Mean Corpuscular Hemoglobin 29.4 pg (27.0-31.0); Mean Corpuscular Volume 90.3 fL (78.0-102.0); Mean Platelet Volume 9.2 fl (8.7-11.0); Platelet Count Result 172 K/mm3 (150-420); Red Blood Count 3.71 M/mm3 (4.70-6.10); Red Cell Distribution Width 13.5 % (11.6-14.4); White Blood Count 3.5 K/mm3 (4.8-10.8)
[2022-01-26 05:27] LABS: Alanine Aminotransferase 29 U/L (16-63); Albumin Level 2.6 g/dL (3.4-5.0); Alkaline Phosphatase 123 U/L (46-116); Anion Gap 9 mmol/L (8-16); Aspartate Amino Transferase 28 U/L (15-37); Bilirubin,Total 0.6 mg/dL (0.00-1.00); Blood Urea Nitrogen 17 mg/dL (7-18); Calcium 7.9 mg/dL (8.5-10.1); Carbon Dioxide 23 mmol/L (21-32); Chloride 107 mmol/L (98-108); Estimated CRCL calculation 61 ml/min; Estimated Glomerular Filt Rate > 60; Glucose 113 mg/dL (70-99); Osmolality Calculated 290 mOsm/kg (285-295); Sodium 139 mmol/L (136-145); Total Protein 6.2 g/dL (6.4-8.2)
[2022-01-26 05:42] LABS: Band Neutrophils Percent 0 % (0-6); Basophils Percent Manual 0 % (0-1); Eosinophils Percent Manual 0 % (1-6); Lymphocytes Absolute Manual 0.42 K/mm3 (1.1-4.5); Lymphocytes Percent Manual 12 % (18-44); Monocytes Absolute Manual 0.14 K/mm3 (0.1-0.90); Monocytes Percent Manual 4 % (3-9); Neutrophils Absolute Manual 2.94 K/mm3 (1.3-6.7); Neutrophils Percent Manual 84 % (46-73); Platelet Estimate Adequate (Adequate); Total Cells Counted 100
[2022-01-26] MEDS: DEXAMETHASONE SOD PHOS INJ 4 MG/ML VIAL IV PUSH (05:52)
--- NOTE | 2022-01-26 06:13 | PC.NURSE ---
Eddie Colon NP, contacted regarding order for IV NS; Orders received and noted to DC IV fluid.
[2022-01-26] MEDS: ASPIRIN 81 MG ENTERIC TABLET PO (08:29)
[2022-01-26] MEDS: ATORVASTATIN 40 MG TABLET PO (08:29)
[2022-01-26] MEDS: FLUoxetine HCL 20 MG CAPSULE 40 MG PO (08:29)
[2022-01-26] MEDS: AZITHROMYCIN 250 MG TABLET 500 MG PO (08:29)
[2022-01-26] MEDS: PANTOPRAZOLE 40 MG TABLET PO (08:29)
--- NOTE | 2022-01-26 10:28 | PM.IMHP ---
H&P: HPI History of Present Illness Date/Time: 01/26/22 10:28 Chief Complaint: Weakness and afebrile Narrative: This is a 76-year-old male who presented to our emergency department with complaints of worsening weakness, and afebrile. Patient has a past medical history of dementia, GERD, hyperlipidemia, hypertension, peptic ulcer disease, aphasia and chronic weakness. Patient is a poor historian most information obtained from his . According to patient has been evaluated multiple times by neurology and has went to physical therapy/Occupational Therapy patient is at his baseline no longer needing physical therapy/Occupational Therapy. Patient has had multiple falls due to his unstable gait. According to his patient became progressively weak with multiple falls. He was brought to our emergency department because he was unable to walk. His recently has had surgery herself. Patient positive for COVID-pneumonia. Patient is not having any respiratory distress at this time we will be admitted evaluated by PT OT and treated for COVID-pneumonia . Spoke with patient's she agrees the patient will need to stay for 1 additional day for IV antibiotic treatment he will discharge home tomorrow. His generalized weakness and aphasia is chronic. The patient denies SOB, CP, palpitation, extremity numbness, lightheadedness, dizziness, constipation, diarrhea, chills, or fever. WBCs 5.3, hemoglobin 12.0, hematocrit 35.7, platelets 202, sodium 138, potassium 3.9, BUN 21, creatinine 1.22, glucose 109, lactic acid 1.0, liver function test within normal limits, troponin 9.2, CRP 2.5, urine with a trace of bacteria and protein, positive for COVID. Review of Systems Review of Systems: All systems reviewed & are unremarkable except as noted in HPI and below PMFSH Past Medical History Medical History (Updated 01/26/22 @ 10:49 by JEAN Harrison) Community acquired pneumonia COVID-19 Dementia early stages GERD (gastroesophageal reflux disease) Hernia, umbilical Hyperlipidemia Hypertension Peptic ulcer disease Sepsis Surgical History Surgical History History of hernia surgery S/P CABG x 3 Family History Family History Other Family history non-contributory Social History Social History Smoking packs per day: 0.5 Smoking cigarettes per day: 10.0 Smoking status: Never smoker Tobacco type: cigarettes Second hand tobacco smoke exposure: No Additional smoking assessment comments: PT UNABLE TO RECALL SMOKING HX, STATES QUIT OVER 30+ YRS AGO Alcohol intake: unknown Substance use: never Substance use type: does not use Gender identity (if verbalized by the patient): Male Spiritual care concerns: No Has the Lack of Transportation Kept You From Medical Appointments or From Getting Medications?: No Within the Past 12 Months, Were You Worried Whether Your Food Would Run Out Before You Got Money to Buy More?: Never True What is Your Housing Situation Today?: I Have Housing Are You Worried That in the Next 2 Months, You May Not Have Your Own Housing to Live In?: No Do You Have Trouble Paying Your Heating Or Electricity Bill?: No Do You Have Trouble Paying For Medicines?: No Are You Currently Unemployed and Looking for Work?: No Highest Level of Education Completed: Don't Know Do You Have Trouble With Childcare or the Care of a Family Member?: No Meds Home Medications and Allergies Home Medications Medication Instructions Recorded Confirmed Type amlodipine 5 mg-benazepril 40 mg 1 cap PO HS 06/22/20 01/25/22 History capsule aspirin 81 mg tablet,delayed 81 mg PO DAILY 06/22/20 01/25/22 History release atorvastatin 40 mg tablet 40 mg PO DAILY 08/18/20 01/25/22 History fluoxetine 20 mg capsule (Prozac) 40 mg PO DAILY 05
--- NOTE | 2022-01-26 18:15 | PC.NURSE ---
collected urine for UA and toxicology
[2022-01-26] MEDS: lisinopriL 20 MG TABLET 40 MG PO (19:57)
[2022-01-26] MEDS: amLODIPine BESYLATE 5 MG TABLET BY MOUTH (19:59)
[2022-01-26] MEDS: guaiFENesin 12 HR 600 MG TABCR 1200 MG PO (21:40)
[2022-01-26] MEDS: BENZONATATE 100 MG CAPSULE 200 MG PO (21:40)
[2022-01-26] MEDS: traZODone HCL 50 MG TABLET PO (22:05)
--- NOTE | 2022-01-26 22:10 | PC.NURSE ---
1944 Eddie Colon, Hospitalist, notified that patient c/o cough. Patient's nurse verified he had a cough. New orders received.
[2022-01-27] VITALS: BP 142/64; PULSE 68; RESP 20; TEMP 36.8; O2SAT 97
[2022-01-27 05:02] LABS: Hemoglobin 10.8 g/dL (12.4-15.3); Immature Granulocyte Absolute 0.04 K/mm3 (0.00-0.00); Immature Granulocyte Percent A 0.6 % (0.0-0.0); Lymphocytes Absolute Auto 0.63 K/mm3 (1.10-4.50); Lymphocytes Percent Auto 9.9 % (18.0-42.0); Mean Corpuscular HGB Conc 33.8 g/dL (32.0-36.0); Mean Corpuscular Hemoglobin 30.3 pg (27.0-31.0); Mean Corpuscular Volume 89.6 fL (78.0-102.0); Mean Platelet Volume 9.1 fl (8.7-11.0); Monocytes Absolute Auto 0.66 K/mm3 (0.10-0.90); Monocytes Percent Auto 10.4 % (2.0-11.0); Neutrophils Percent Auto 79.1 % (50.0-70.0); Platelet Count Result 192 K/mm3 (150-420); Red Blood Count 3.57 M/mm3 (4.70-6.10); Red Cell Distribution Width 13.4 % (11.6-14.4); White Blood Count 6.3 K/mm3 (4.8-10.8)
[2022-01-27 05:17] LABS: Anion Gap 9 mmol/L (8-16); Blood Urea Nitrogen 22 mg/dL (7-18); Calcium 8.4 mg/dL (8.5-10.1); Carbon Dioxide 26 mmol/L (21-32); Chloride 105 mmol/L (98-108); Estimated CRCL calculation 66 ml/min; Estimated Glomerular Filt Rate > 60; Glucose 114 mg/dL (70-99); Osmolality Calculated 294 mOsm/kg (285-295); Potassium 4.3 mmol/L (3.5-5.1); Sodium 140 mmol/L (136-145)
[2022-01-27 08:00] VITALS: BP 125/74; PULSE 68; RESP 18; TEMP 36.3; O2SAT 96
[2022-01-27] MEDS: BENZONATATE 100 MG CAPSULE 200 MG PO (08:58)
[2022-01-27] MEDS: ASPIRIN 81 MG ENTERIC TABLET PO (08:59)
[2022-01-27] MEDS: PANTOPRAZOLE 40 MG TABLET PO (08:59)
[2022-01-27] MEDS: FLUoxetine HCL 20 MG CAPSULE 40 MG PO (08:59)
[2022-01-27] MEDS: AZITHROMYCIN 250 MG TABLET 500 MG PO (08:59)
[2022-01-27] MEDS: guaiFENesin 12 HR 600 MG TABCR 1200 MG PO (08:59)
[2022-01-27] MEDS: ATORVASTATIN 40 MG TABLET PO (08:59)
--- NOTE | 2022-01-27 09:40 | PM.DS ---
DS: Admitting Diagnosis Discharge Date 01/27/2022 Admitting Diagnosis covid pna and weakness DS: Discharge Diagnosis Discharge Diagnosis (1) Pneumonia due to COVID-19 virus: Code(s): U07.1 - COVID-19; J12.82 - Pneumonia due to coronavirus disease 2018 Status: Acute Assessment and Plan: Continue azithromycin along with cefdinir Chest x-ray indicated pneumonia Blood culture pending Patient not having any respiratory distress (2) Dementia: Code(s): F03.90 - Unspecified dementia, unspecified severity, without behavioral disturbance, psychotic disturbance, mood disturbance, and anxiety Status: Acute (3) GERD (gastroesophageal reflux disease): Code(s): K21.9 - Gastro-esophageal reflux disease without esophagitis Status: Acute Assessment and Plan: Continue pantoprazole (4) Hyperlipidemia: Code(s): E78.5 - Hyperlipidemia, unspecified Status: Acute Assessment and Plan: Continue atorvastatin (5) Weakness: Code(s): R53.1 - Weakness Status: Acute Assessment and Plan: consulted pt/ot Patient at baseline (6) Aphagia: Code(s): R13.0 - Aphagia Status: Acute Assessment and Plan: chronic f/u with neuro DS: Summary Hospital Course Hospital Course: This is a 76-year-old male who presented to our emergency department with complaints of worsening weakness, and afebrile.? Patient has a past medical history of dementia, GERD, hyperlipidemia, hypertension, peptic ulcer disease, aphasia and chronic weakness.? Patient is a poor historian most information obtained from his .? According to patient has been evaluated multiple times by neurology and has went to physical therapy/Occupational Therapy patient is at his baseline no longer needing physical therapy/Occupational Therapy.? Patient has had multiple falls due to his unstable gait.? According to his patient became progressively weak with multiple falls.? He was brought to our emergency department because he was unable to walk.? Patient condition has improved discharge instructions reviewed with patient, as well as provided in writing per nursing staff. The instructions also include specific and strict return/GO TO THE ER as well as f/u information. All questions have been answered, and the patient and/or family deny any further questions with discharge and discharge plan. Patient will discharge home with azithromycin along with Rocephin. He is not having any respiratory distress at this time. Denies Time Spent with Patient Time attestation: Total time spent providing and/or coordinating discharge services: Exam Narrative: GENERAL: This is a well-nourished, well-developed patient, in no apparent distress. HEAD: normocephalic, atraumatic. EYES: PERRL. Sclera clear/white. Vision is grossly intact. EARS: External ears normal, auditory canals clear and without drainage, TMs normal without perforation. Hearing grossly intact. NOSE: External nose normal with no obvious nasal discharge, nares without redness, no rhinorrhea. THROAT: Mucous membranes moist, posterior pharynx clear. NECK: Neck supple, non-tender without lymphadenopathy, masses or thyromegaly. CARDIOVASCULAR: Regular rate and rhythm without murmurs, gallops, or rubs. RESPIRATORY: Clear to auscultation. Breath sounds equal bilaterally. No wheezes, rales, or rhonchi. GASTROINTESTINAL: Abdomen soft, non-tender, nondistended. Bowel sounds are active. No hepato-splenomegaly, or palpable masses. No guarding. SKIN: warm, intact with no suspicious lesions or rash, good texture and turgor. NEURO: awake, alert, and oriented to person, place and time. Chronic aphasia unsteady gait and tremors EXTREMITIES: Normal range of motion. No edema. No calf tenderness. DS: Data Data Completed and Pending Labs on day of discharge: Labs from last 24 hours 01/27/22 01/27/22 04:58 04:58 WBC 6.3 RBC 3.57 L Hgb
--- NOTE | 2022-01-27 12:07 | PC.NURSE ---
Pt transported to front of hospital and assisted into private vehicle. Discharge instructions reviewed with patient , all questions answered.
--- NOTE | 2022-01-30 11:16 | PC.NURSE ---
Pt states he received and understood the discharge instructions. Pt has no other comments.
== END 2022-01-27 12:00 | disposition home or self-care (01) | DRG 177 ==
LOC: CHSED 23:48 → CHS2ND 01-26 00:34
PROVIDERS: Nurse Practitioner; Admitting Provider Internal Medicine; Emergency Provider Emergency Medicine; PCP Internal Medicine; Visit Provider Internal Medicine
DX: U07.1 COVID-19 (principal); J18.9 Pneumonia, unspecified organism; I10 Essential (primary) hypertension; K21.9 Gastro-esophageal reflux disease without esophagitis; E78.5 Hyperlipidemia, unspecified; Z95.1 Presence of aortocoronary bypass graft; F03.90 Unspecified dementia, unspecified severity, without behavioral disturbance, psychotic disturbance, mood disturbance, and anxiety; Z87.891 Personal history of nicotine dependence; Z79.82 Long term (current) use of aspirin; J12.82 Pneumonia due to coronavirus disease 2019; R47.01 Aphasia; R26.89 Other abnormalities of gait and mobility; R25.1 Tremor, unspecified; R29.6 Repeated falls
CPT/HCPCS: 36415; 36600; 71250; 80048; 80053; 81001; 82805; 83605; 84484; 85025; 85610; 85730; 86140; 87040; 87502; 87651; 93005; 96361; 96365; 96375; 97110; 97162; 97165; 97530; 97535; 99285; A9270; C9803; J0696; J1100; J2270; J2405; J7030; U0003; U0005

== ENCOUNTER 2022-04-10 11:04 | Outpatient (CLI) | payer MEDICARE, SELFPAY ==
--- NOTE | ~2022-04-10 | XR_ITS ---
EXAMINATION: XR chest 2V Exam Date/Time: 04/10/2022 11:12 MANAGER TECHNICAL HISTORY: PNEAUMONIA FOLLOW UP Comparison: 03/07/2021, CT chest 01/25/2022. RESULT: Lines, tubes, and devices: Intact sternotomy wires. Lungs and pleura: Mild senescent change, calcified right lung granuloma, otherwise clear. Cardiomediastinal silhouette: Stable. Other: No acute osseous or upper abdominal finding. IMPRESSION: No acute cardiopulmonary process. Reviewed, dictated and finalized at location K. GER TECHNICAL
== END 2022-04-10 11:05 | disposition home or self-care (01) ==
LOC: CHSIMG 11:08
PROVIDERS: PCP Internal Medicine; Visit Provider Internal Medicine
DX: J18.9 Pneumonia, unspecified organism (principal)
CPT/HCPCS: 71046

== ENCOUNTER 2022-07-14 16:05 | Emergency (ER) | payer MEDICARE, SELFPAY ==
--- NOTE | ~2022-07-14 | XR_ITS ---
XR shoulder RT min 2V DATE: 07/14/2022 16:54 INDICATION: Fall one week ago. Right jugular line shoulder. TECHNIQUE: 4 views COMPARISON: None FINDINGS: Diffuse osteopenia. Status post sternotomy. No fracture or dislocation, periosteal reaction or bone destruction or abnormal soft tissue calcifica tion of the right shoulder. IMPRESSION: Osteopenia Status post sternotomy Reviewed, dictated and finalized at location A.
--- NOTE | ~2022-07-14 | XR_ITS ---
XR humerus RT DATE: 07/14/2022 16:54 INDICATION: Fall one week ago. Generalized right arm pain TECHNIQUE: AP and lateral views COMPARISON: None FINDINGS: Supracondylar spur of the distal humerus, anatomic variant. Osteopenia. No fracture, dislocation, periosteal reaction or bone destruction of the left humerus is detected. IMPRESSION: No fracture or dislocation is detected Osteopenia Supracondylar spur of distal humerus Reviewed, dictated and finalized at location A.
[2022-07-14 16:05] VITALS: BP 134/73; PULSE 78; RESP 18; TEMP 37.1; O2SAT 95
--- NOTE | 2022-07-14 16:21 | ED.GENADULT ---
HPI - General Adult General Chief complaint: Extremity Injury, Upper Stated complaint: fall 1wk ago, right arm pain Time Seen by Provider: 07/14/22 16:16 History of Present Illness HPI narrative: the patient is a 76-year-old male with history of dementia with primary progressive aphasia, GERD, hypertension, hyperlipidemia, BPH status post prostate procedure. He has had progressive memory loss. He shuffles when he walks at baseline. He has weakness in his right upper and lower extremities at baseline. He has had multiple brain imaging modalities including an MRI done September 2021 that did not reveal any strokes. See results below. He does not use the right arm and leg as much as he uses the left. He is with his left hand.He shuffles when he walks. History according to the . The patient fell approximately 1 week ago, landing on his right shoulder, off of his recliner. He complained to the that he needs to go to the hospital because his right shoulder and upper arm is bothering him. Difficult to elicit any other complaints. No other history is available or obtainable. The states that he has no pain anywhere else but does have pain with movement of the right arm, especially when she dresses him. No loss of consciousness. He is at baseline otherwise. No fevers or chills. No URI or UTI symptoms. No abdominal pain. No vomiting. Related Data Home Medications Medication Instructions Recorded Confirmed amlodipine 5 mg-benazepril 40 mg 1 cap PO HS 06/22/20 07/14/22 capsule aspirin 81 mg tablet,delayed 81 mg PO DAILY 06/22/20 07/14/22 release atorvastatin 40 mg tablet 40 mg PO DAILY 08/18/20 07/14/22 fluoxetine 20 mg capsule (Prozac) 40 mg PO DAILY 08/18/20 07/14/22 pantoprazole 40 mg tablet,delayed 40 mg PO DAILY 08/18/20 07/14/22 release Allergies Allergy/AdvReac Type Severity Reaction Status Date / Time No Known Allergies Allergy Verified 07/13/20 01:29 Review of Systems Review of Systems: All systems reviewed & are unremarkable except as noted in HPI and below Constitutional: Constitutional: Reports as per HPI, Reports no additional constitutional complaints, Denies chills, Denies excessive sweating, Reports fatigue ( Baseline), Denies fever(s), Denies headache(s) and Denies weakness Eyes: Eyes: Reports as per HPI, Reports no additional eye complaints, Denies change in vision and Denies photophobia ENT: Reports system reviewed and no additional complaints, except as documented, Reports as per HPI, Denies dysphagia, Denies vertigo, Denies dizziness, Denies headache(s), Denies lip swelling, Denies nasal congestion, Denies sore throat, Denies throat swelling and Denies tongue swelling Cardiovascular: Cardiovascular: Reports as per HPI, Reports no additional cardiovascular complaints, Denies chest pain, Denies syncope, Denies rapid heart rate and Denies dyspnea Respiratory: Respiratory: Reports as per HPI, Reports no additional respiratory complaints, Denies chest congestion, Denies cough, Denies dyspnea and Denies wheezing Gastrointestinal: Gastrointestinal: Reports as per HPI, Reports no additional gastrointestinal complaints, Denies abdominal pain, Denies constipation, Denies dysphagia, Denies diarrhea, Denies nausea and Denies vomiting Genitourinary: Genitourinary: Reports as per HPI, Denies hematuria, Denies oliguria, Denies dysuria, Denies urinary frequency, Denies urinary incontinence and Denies urinary urgency Musculoskeletal: Musculoskeletal: Reports no additional musculoskeletal complaints, Denies back pain, Denies myalgias, Reports arthralgias ( right arm especially shoulder), Denies joint swelling and Denies numbness Integumentary/Breasts: Skin/Breast: Reports system reviewed and no additional complaints, except as docu, Denies pruritus, Denies erythema, Denies rash and Denies skin ulcer Neurologic: Reports system reviewed and no additional complaints, except as documented, Reports as per HPI, Rep
[2022-07-14] MEDS: ACETAMINOPHEN 500 MG TABLET 1000 MG PO (16:54)
[2022-07-14 17:09] VITALS: BP 134/73; PULSE 78; RESP 20; TEMP 37.1; O2SAT 95
== END 2022-07-14 17:11 | disposition home or self-care (01) ==
PROVIDERS: Emergency Provider Emergency Medicine; PCP Internal Medicine
DX: M25.511 Pain in right shoulder (principal); F03.90 Unspecified dementia, unspecified severity, without behavioral disturbance, psychotic disturbance, mood disturbance, and anxiety; I10 Essential (primary) hypertension; E78.5 Hyperlipidemia, unspecified; Z79.82 Long term (current) use of aspirin; W07.XXXA Fall from chair, initial encounter
CPT/HCPCS: 73030; 73060; 99283

== ENCOUNTER 2022-08-11 17:13 | Emergency (ER) | payer MEDICARE, SELFPAY ==
[2022-08-11] VITALS (23 sets, daily range): BP systolic 126–155; BP diastolic 78–93; PULSE 88–100; RESP 18–20; TEMP 36.7–37.2; O2SAT 91–99
--- NOTE | 2022-08-11 17:30 | ED.MALEGU ---
HPI - Male Genitourinary General Chief complaint: Urogenital-Male Stated complaint: DEMENTIA, POSSIBLE UTI Time Seen by Provider: 08/11/22 17:17 History of Present Illness HPI Narrative: HPI primarily obtained through the patient's spouse. This is a 76-year-old male with past history of progressive aphasia, who is brought to the emergency department by his for increased urinary frequency. She states he has had the symptoms beginning last night. She is also concerned that the patient stood approximately 1 hour ago and attempted to urinate but was unable to. She denies vomiting, fevers, or other obvious pain. Related Data Home Medications Medication Instructions Recorded Confirmed amlodipine 5 mg-benazepril 40 mg 1 cap PO HS 06/22/20 07/14/22 capsule aspirin 81 mg tablet,delayed 81 mg PO DAILY 06/22/20 07/14/22 release atorvastatin 40 mg tablet 40 mg PO DAILY 08/18/20 07/14/22 fluoxetine 20 mg capsule (Prozac) 40 mg PO DAILY 08/18/20 07/14/22 pantoprazole 40 mg tablet,delayed 40 mg PO DAILY 08/18/20 07/14/22 release Allergies Allergy/AdvReac Type Severity Reaction Status Date / Time No Known Allergies Allergy Verified 08/11/22 17:34 Review of Systems Review of Systems: Review of systems obtained primarily through the patient's spouse CONSTITUTIONAL: Denies fever, chills, or sweats. CARDIOVASCULAR: Denies chest pain RESPIRATORY: Chronic cough unchanged denies dyspnea. GASTROINTESTINAL: Denies abdominal pain, nausea, vomiting, or diarrhea. GENITOURINARY: Increased urinary frequency denies dysuria or hematuria. SKIN: Denies rash or itching. MUSCULOSKELETAL: Denies obvious back pain, or joint pain NEUROLOGIC: Denies new weakness. [facility] Past Medical History Medical History Community acquired pneumonia COVID-19 Dementia early stages GERD (gastroesophageal reflux disease) Hernia, umbilical Hyperlipidemia Hypertension Peptic ulcer disease Sepsis Surgical History Surgical History History of hernia surgery S/P CABG x 3 Family History Family History Other Family history non-contributory Social History Social History Smoking packs per day: 0.5 Smoking cigarettes per day: 10.0 Smoking status: Never smoker Tobacco type: cigarettes Second hand tobacco smoke exposure: No Additional smoking assessment comments: PT UNABLE TO RECALL SMOKING HX, STATES QUIT OVER 30+ YRS AGO Alcohol intake: unknown Substance use: never Substance use type: does not use Lack of Transportation: No Lack of Food: Never True Current Housing: I Have Housing Concerned About Future Housing: No Difficulty Paying Gas/Electric Bills: No Difficulty Paying for Meds: No Currently Unemployed: No Education: Don't Know Difficulty w/ Childcare or Family Care: No Living arrangements: with family Gender identity (if verbalized by the patient): Male Spiritual care concerns: No Exam Narrative: GENERAL: Well-developed, well-nourished, and in no acute distress. HEAD: Normocephalic, atraumatic. EYES: PERRLA and EOMI. ENT: Nares clear, no rhinorrhea or epistaxis. Mucous membranes moist. Oropharynx without tonsillar hypertrophy exudate or other lesions. CHEST: Clear to auscultation. No respiratory distress. No wheezes rales or rhonchi HEART: Regular rate and rhythm. No murmur heard. Normal peripheral pulses. ABDOMEN: Soft, nontender, nondistended, normal active bowel sounds. No CVA tenderness to palpation EXTREMITIES: Normal range of motion. No edema. SKIN: Warm, dry, no rash. NEURO: Alert. Expressive aphasia. Moves all 4 limbs and follows commands. No other focal deficits. PSYCH: Normal mood and affect. Course Course Emergency Course: 18:40 - [facility]
--- NOTE | 2022-08-11 18:27 | PC.NURSE ---
patient assisted to standing position by RN and copier repair technician. approximately 25 mL of yellow urine obtained from pt void. copier repair technician at bedside performing post void residual scan and RN sent urine to lab for analysis.
[2022-08-11 18:32] LABS: Appearance Urine Clear (Clear); Bilirubin Urine Negative (Negative); Blood Urine Negative (Negative); Color Urine Yellow (Yellow); Glucose Urine UA Negative (Negative); Ketones Urine Negative (Negative); Leukocyte Esterase Ur Negative LEU/UL (Negative); Nitrate Urine Negative (Negative); Protein Urine Negative (Negative); Specific Grav Ur 1.025 (1.010-1.020); Urobilinogen Urine 0.2 mg/dL (0.2-1.0)
[2022-08-11 18:33] LABS: Add Urine Microscopic? NO
--- NOTE | 2022-08-11 19:16 | PC.NURSE ---
RN attempted insertion of bazzi catheter x 2 without success, initially using 16 Divehi bazzi then attempting with 16 frisian coude catheter, both of which were not able to pass into patient urethra distally. ERP notified and Dr. Sun attempted using 12 Divehi however was also unable to pass catheter into urethra. Plan for consult with [facility] as patient having urinary retention. Patient report given to [facility] consultant nurse Torres. Pt spouse at bedside, aware of plan.
== END 2022-08-11 20:50 | disposition home or self-care (01) ==
PROVIDERS: Emergency Provider Preventive Medicine Aerospace Medicine; PCP Internal Medicine
DX: R33.9 Retention of urine, unspecified (principal); E78.5 Hyperlipidemia, unspecified; I10 Essential (primary) hypertension; F03.90 Unspecified dementia, unspecified severity, without behavioral disturbance, psychotic disturbance, mood disturbance, and anxiety; F17.210 Nicotine dependence, cigarettes, uncomplicated
CPT/HCPCS: 81003; 99283

== ENCOUNTER 2022-08-11 21:19 | Emergency (ER) | payer MEDICARE, SELFPAY ==
[2022-08-11 21:25] VITALS: BP 129/83; PULSE 81; RESP 18; TEMP 36.8; O2SAT 96
[2022-08-11 21:37] VITALS: BP 147/91; PULSE 88; RESP 16; O2SAT 96
[2022-08-11] MEDS: LIDOCAINE HCL 2% GEL UROJET 10 ML PKG MUCOUS MEM (22:30)
--- NOTE | 2022-08-11 22:34 | ED.GENADULT ---
HPI - General Adult General Chief complaint: Urogenital-Male Stated complaint: needs catheter placed Time Seen by Provider: 08/11/22 21:46 History of Present Illness HPI narrative: Patient is a 76-year-old gentleman who presents the emergency department with chief complaint of urinary retention. Patient is a transfer from an outlying facility after patient has been having issues with urination all day patient does getting about 10 mL of urine out at any given time and having a feeling of fullness. Patient had a bladder scan that showed greater than 200 mL in the bladder at the outlying facility and they do not have urology coverage. The case was discussed with urology on-call who recommended the patient be transferred to the emergency department at our facility for further care. Related Data Home Medications Medication Instructions Recorded Confirmed amlodipine 5 mg-benazepril 40 mg 1 cap PO HS 06/22/20 07/14/22 capsule aspirin 81 mg tablet,delayed 81 mg PO DAILY 06/22/20 07/14/22 release atorvastatin 40 mg tablet 40 mg PO DAILY 08/18/20 07/14/22 fluoxetine 20 mg capsule (Prozac) 40 mg PO DAILY 08/18/20 07/14/22 pantoprazole 40 mg tablet,delayed 40 mg PO DAILY 08/18/20 07/14/22 release Allergies Allergy/AdvReac Type Severity Reaction Status Date / Time No Known Allergies Allergy Verified 08/11/22 17:34 Review of Systems Review of Systems: A 10 system review of systems was completed on the patient and is negative except for what is stated in the HPI. Nursing and ancillary documentation was reviewed. [facility] Past Medical History Medical History Community acquired pneumonia COVID-19 Dementia early stages GERD (gastroesophageal reflux disease) Hernia, umbilical Hyperlipidemia Hypertension Peptic ulcer disease Sepsis Surgical History Surgical History History of hernia surgery S/P CABG x 3 Family History Family History Other Family history non-contributory Social History Social History Smoking packs per day: 0.5 Smoking cigarettes per day: 10.0 Smoking status: Never smoker Tobacco type: cigarettes Second hand tobacco smoke exposure: No Additional smoking assessment comments: PT UNABLE TO RECALL SMOKING HX, STATES QUIT OVER 30+ YRS AGO Alcohol intake: unknown Substance use: never Substance use type: does not use Lack of Transportation: No Lack of Food: Never True Current Housing: I Have Housing Concerned About Future Housing: No Difficulty Paying Gas/Electric Bills: No Difficulty Paying for Meds: No Currently Unemployed: No Education: Don't Know Difficulty w/ Childcare or Family Care: No Living arrangements: with family Gender identity (if verbalized by the patient): Male Spiritual care concerns: No Exam Narrative: GENERAL: Well-appearing, well-nourished, and in no acute distress. HEAD: Normocephalic, atraumatic. EYES: PERRLA and EOMI. ENT: Nares clear, no rhinorrhea or epistaxis. Mucous membranes moist. NECK: Supple. CHEST: Clear to auscultation. No respiratory distress. HEART: Regular rate and rhythm. No murmur heard. Normal peripheral pulses. ABDOMEN: Soft, nontender, nondistended, normal active bowel sounds. EXTREMITIES: Normal range of motion. No edema. SKIN: Warm, dry, no rash. NEURO: No focal deficits. Alert and oriented patient is aphasic at baseline. PSYCH: Normal mood and affect. Course Vital Signs Vital signs: Vital Signs Temperature 36.8 C 08/11/22 21:25 Pulse Rate 81 08/11/22 21:25 Respiratory Rate 18 08/11/22 21:25 Blood Pressure 129/83 08/11/22 21:25 Pulse Oximetry 96 08/11/22 21:25 Temperature 36.8 C 08/11/22 21:25 Pulse Rate 88 05/0
--- NOTE | 2022-08-11 22:43 | WPDURCON ---
Assessment and Plan Assessment and plan (1) Acute urinary retention: Code(s): R33.8 - Other retention of urine Status: Acute (2) Postprocedural fossa navicularis urethral stricture: Code(s): N99.115 - Postprocedural fossa navicularis urethral stricture Status: Acute Plan urinary hesitancy and difficulty/retention. hx of TURP, fossa navicularis stricture. stricture gently dilated by me. 16 Fr Coude placed with return of 200cc clear yellow urine with symptom relief. -cath for 3-5 days, f/u with Kay for void trial. Urology Consult Note HPI Date Seen: 08/11/22 Primary Care Provider: Cesar Lafleur MD Consult Narrative Narrative: Axel Reyes is a 76 year old male with 2 day hx of voiding difficulties. Denies fever or chills. poor historian. was seen at OSH. unable to place cath. per he has hx of TURP by Dr Villanueva. denies hematuria or dysuria. PVR 200 cc at OSH. Review of Systems Constitutional: Constitutional: Reports no additional constitutional complaints, Denies body ache(s) and Denies chills Eyes: Eyes: Reports as per HPI and Reports no additional eye complaints ENT: Reports as per HPI Cardiovascular: Cardiovascular: Denies chest pain and Denies pedal edema Respiratory: Respiratory: Reports as per HPI and Denies dyspnea Gastrointestinal: Gastrointestinal: Reports as per HPI and Denies abdominal pain Genitourinary: Genitourinary: Reports as per HPI Musculoskeletal: Musculoskeletal: Reports no additional musculoskeletal complaints Neurologic: Reports system reviewed and no additional complaints, except as documented Psychiatric: Psychiatric: Reports no additional psychiatric complaints [facility] Past Medical History Medical History Community acquired pneumonia COVID-19 Dementia early stages GERD (gastroesophageal reflux disease) Hernia, umbilical Hyperlipidemia Hypertension Peptic ulcer disease Sepsis Surgical History Surgical History History of hernia surgery S/P CABG x 3 Family History Family History Other Family history non-contributory Social History Social History Smoking packs per day: 0.5 Smoking cigarettes per day: 10.0 Smoking status: Never smoker Tobacco type: cigarettes Second hand tobacco smoke exposure: No Additional smoking assessment comments: PT UNABLE TO RECALL SMOKING HX, STATES QUIT OVER 30+ YRS AGO Alcohol intake: unknown Substance use: never Substance use type: does not use Lack of Transportation: No Lack of Food: Never True Current Housing: I Have Housing Concerned About Future Housing: No Difficulty Paying Gas/Electric Bills: No Difficulty Paying for Meds: No Currently Unemployed: No Education: Don't Know Difficulty w/ Childcare or Family Care: No Living arrangements: with family Gender identity (if verbalized by the patient): Male Spiritual care concerns: No Meds Home Medications and Allergies Home Medications Medication Instructions Recorded Confirmed Type amlodipine 5 mg-benazepril 40 mg 1 cap PO HS 06/22/20 07/14/22 History capsule aspirin 81 mg tablet,delayed 81 mg PO DAILY 06/22/20 07/14/22 History release atorvastatin 40 mg tablet 40 mg PO DAILY 08/18/20 07/14/22 History fluoxetine 20 mg capsule (Prozac) 40 mg PO DAILY 08/18/20 07/14/22 History pantoprazole 40 mg tablet,delayed 40 mg PO DAILY 08/18/20 07/14/22 History release tamsulosin 0.4 mg capsule 0.4 mg PO DAILY #14 caps 08/11/22 Rx Allergies Allergy/AdvReac Type Severity Reaction Status Date / Time No Known Allergies Allergy Verified 08/11/22 17:34 Vital Signs Vital Signs - 24 hr 08/11/22 21:25 08/11/22 21:37 Temperature 36.8
--- NOTE | 2022-08-11 22:49 | PM.OP ---
Procedure Note - Brief Procedure Note - Brief Date of procedure: 08/11/22 urinary retention Post-op diagnosis: Other (fossa navicularis stricture) Procedure performed: urethral dilation, placement of complex bazzi catheter Surgeon: Kunal Mtz MD Findings: genitalia were prepped with betadine, 10cc lidocaine jelly used. attempted to place a 16 fr bazzi, would not pass fossa navicularis. I was able to pass a 10 Fr bazzi into bladder. Urethra meatus dilated with sounds from 12 Fr to 18 Fr. 16 Fr coude placed with 10cc of sterile water in balloon. 200cc clear urine obtained with adequate symptom relief
[2022-08-11 23:55] VITALS: BP 138/88; PULSE 88; RESP 16; O2SAT 94
== END 2022-08-11 23:55 | disposition home or self-care (01) ==
PROVIDERS: Emergency Provider Emergency Medicine; PCP Internal Medicine
DX: N99.115 Postprocedural fossa navicularis urethral stricture (principal); R33.8 Other retention of urine; E78.5 Hyperlipidemia, unspecified; I10 Essential (primary) hypertension; K21.9 Gastro-esophageal reflux disease without esophagitis; Z95.1 Presence of aortocoronary bypass graft; Z87.11 Personal history of peptic ulcer disease; Z86.16 Personal history of COVID-19; Z87.01 Personal history of pneumonia (recurrent); Z87.891 Personal history of nicotine dependence; Z79.82 Long term (current) use of aspirin
CPT/HCPCS: 51702; 51703; 99283; C1726